=== PATIENT | male | born 1950 | race Caucasian/White ===

== ENCOUNTER 2019-06-23 03:52 | Emergency (ER) | payer BC, MEDICARE ==
[2019-06-23 04:32] VITALS: PULSE 82
--- NOTE | 2019-06-23 04:39 | EDM.PDOC ---
ED HPI GENERAL MEDICAL PROBLEM - General Chief Complaint: Genitourinary Problem Stated Complaint: PROBLEMS URINATING Time Seen by Provider: 06/23/19 04:15 Source of Information: Reports: Patient History Limitations: Reports: No Limitations - History of Present Illness INITIAL COMMENTS - FREE TEXT/NARRATIVE: 68-year-old male history of seizure disorder, prior DVT and Coumadin presents with concerns of urinary retention. He reports that symptoms first started approximately 2 days ago. He noticed increased difficulty with emptying. Some mild burning with this as well. No fevers or chills. No new medications. No history of prior issues with urinary retention. No known BPH. Otherwise feeling well. Lower Abdomen Pain Score (Numeric/FACES): 5 - Related Data Allergies Allergy/AdvReac Type Severity Reaction Status Date / Time No Known Allergies Allergy Verified 05/07/15 08:58 Home Meds: Home Meds Phenytoin [Dilantin] 30 mg PO DAILY 04/11/15 [History] Warfarin [Coumadin] 5 mg PO DAILY 04/11/15 [History] Phenytoin Sodium Extended [Dilantin] 500 mg PO DAILY 04/17/15 [History] Tamsulosin [Flomax] 0.4 mg PO DAILY #21 cap.er 06/23/19 [Rx] Past Medical History HEENT History: Reports: Impaired Vision Musculoskeletal History: Reports: Fracture Other Musculoskeletal History: right injury due to chain saw Neurological History: Reports: Seizure - Past Surgical History Other Musculoskeletal Surgeries/Procedures:: right hand Social & Family History - Family History Family Medical History: Noncontributory - Tobacco Use Smoking Status *Q: Never Smoker - Caffeine Use Caffeine Use: Reports: Coffee - Recreational Drug Use Recreational Drug Use: No ED ROS GENERAL - Review of Systems Review Of Systems: See Below Constitutional: Reports: No Symptoms HEENT: Reports: No Symptoms Respiratory: Reports: No Symptoms Cardiovascular: Reports: No Symptoms Endocrine: Reports: No Symptoms GI/Abdominal: Reports: No Symptoms : Reports: Urinary Retention Musculoskeletal: Reports: No Symptoms Skin: Reports: No Symptoms Neurological: Reports: No Symptoms Psychiatric: Reports: No Symptoms Hematologic/Lymphatic: Reports: No Symptoms Immunologic: Reports: No Symptoms ED EXAM, RENAL/ - Physical Exam Exam: See Below Exam Limited By: No Limitations General Appearance: Alert, No Apparent Distress Ears: Normal External Exam Nose: Normal Inspection Throat/Mouth: Normal Inspection Head: Atraumatic, Normocephalic Neck: Normal Inspection Respiratory/Chest: No Respiratory Distress, Lungs Clear Cardiovascular: Regular Rate, Rhythm GI/Abdominal: Soft, Non-Tender, No Distention Back Exam: Normal Inspection Extremities: Normal Inspection Neurological: Alert, Oriented Psychiatric: Normal Affect, Normal Mood Skin Exam: Warm, Dry Course - Vital Signs Last Recorded V/S: Last Vital Signs Temp 37.0 C 06/23/19 04:27 Pulse 82 06/23/19 04:27 Resp 16 06/23/19 04:27 BP 206/100 H 06/23/19 04:27 Pulse Ox 98 06/23/19 04:27 - Orders/Labs/Meds Labs: Laboratory Tests 06/23/19 Range/Units 04:27 Urine Color Yellow (YELLOW) Urine Appearance Clear (CLEAR) Urine pH 5.5 (5.0-8.0) Ur Specific [place] 1.015 (1.008-1.030) Urine Protein Negative (NEGATIVE) mg/dL Urine Glucose (UA) Negative (NEGATIVE) mg/dL Urine Ketones Negative (NEGATIVE) mg/dL Urine Occult Blood Moderate H (NEGATIVE) Urine Nitrite Negative (NEGATIVE) Urine Bilirubin Negative (NEGATIVE) Urine Urobilinogen 0.2 (0.2-1.0) EU/dL Ur Leukocyte Esterase Negative (NEGATIVE) Urine RBC 10-20 H (0-5) Urine WBC 0-5 (0-5) Ur Epithelial Cells Rare Amorphous Sediment Few Urine Bacteria Few Urine Mucus Not seen - Re-Assessments/Exams Free Text/Narrative Re-Assessment/Exam: 68-year-old presents with concerns of urinary retention. Symptoms relatively acutely started just over 2 days ago. No known history of BPH. Certainly at risk for this given his age. No other clear offenders. Rodriguez inserted and initially drained over 1 L fluid of clear urine before being clamped by RN. We'll check UA. Plan to start him on tamsulosin. The to follow up with PCP in one week for voiding trial and further workup. 06/23/19 04:37 Departure - Departure Time of Disposition: 17:11 Disposition: Home, Self-Care 01 Clinical Impression: Urinary retention - Discharge Information Prescriptions: Tamsulosin [Flomax] 0.4 mg PO DAILY #21 cap.er Instructions: Acute Urinary Retention, Male Referrals: PCP,None [Primary Care Provider] - Forms: ED Department Discharge Additional Instructions: Please call your primary doctor this week to arrange follow-up for voiding trial and to have a recheck of your BP Take the prescribed medication Return to the ER or call your primary doctor if you develop fevers/chills, drainage out the catheter stops, or you develop pain
[2019-06-23 05:16] VITALS: BP 151/84
== END 2019-06-23 05:30 | disposition home or self-care (01) ==
LOC: JP.ED 03:52
DX: R33.9 Retention of urine, unspecified (principal); Z79.01 Long term (current) use of anticoagulants
CPT/HCPCS: 51702; 81001; 99282-25

== ENCOUNTER 2019-06-28 02:52 | Emergency (ER) | payer MEDICARE ==
[2019-06-28] MEDS ORDERED: Lidocaine 2% Jelly 10 ML Urojet ONE (03:09)
[2019-06-28 03:16] VITALS: PULSE 85
[2019-06-28] MEDS ORDERED: Lidocaine 2% Jelly 10 ML Urojet MUCMEM ONE (03:33)
[2019-06-28 03:40] VITALS: BP 153/89
--- NOTE | 2019-06-28 03:40 | EDM.PDOC ---
ED HPI GENERAL MEDICAL PROBLEM - General Chief Complaint: Genitourinary Problem Stated Complaint: TROUBLE URINATING Time Seen by Provider: 06/28/19 03:34 Source of Information: Reports: Patient, Old Records, RN History Limitations: Reports: No Limitations - History of Present Illness INITIAL COMMENTS - FREE TEXT/NARRATIVE: 68 yo male here with inability to void. Had a ramos removed for urinary retention yesterday. Is now on Flomax. Has been unable to void since having the catheter out. Onset Date: 06/27/19 Duration: Hour(s):, Getting Worse Location: Reports: Pelvis (Bladder) Quality: Reports: Pressure Severity: Severe Improves with: Reports: Other (catheter placement) Worsens with: Reports: Other (time) Context: Reports: Other (See HPI) Associated Symptoms: Reports: No Other Symptoms Treatments LENS MAKER: Reports: Other (see below) (none) Bladder Pain Score (Numeric/FACES): 8 - Related Data Allergies Allergy/AdvReac Type Severity Reaction Status Date / Time No Known Allergies Allergy Verified 06/28/19 03:08 Home Meds: Home Meds Phenytoin [Dilantin] 30 mg PO DAILY 04/11/15 [History] Warfarin [Coumadin] 5 mg PO DAILY 04/11/15 [History] Phenytoin Sodium Extended [Dilantin] 500 mg PO DAILY 04/17/15 [History] Tamsulosin [Flomax] 0.4 mg PO DAILY #21 cap.er 06/23/19 [Rx] Past Medical History HEENT History: Reports: Impaired Vision Genitourinary History: Reports: Retention, Urinary Other Genitourinary History: 1st time urinary retention on 06/23/2019 Musculoskeletal History: Reports: Fracture Other Musculoskeletal History: right injury due to chain saw Neurological History: Reports: Seizure - Infectious Disease History Infectious Disease History: Reports: Chicken Pox - Past Surgical History Other Musculoskeletal Surgeries/Procedures:: right hand Social & Family History - Family History Family Medical History: Noncontributory - Tobacco Use Second Hand Smoke Exposure: No - Caffeine Use Caffeine Use: Reports: Coffee - Recreational Drug Use Recreational Drug Use: No ED ROS GENERAL - Review of Systems Review Of Systems: Comprehensive ROS is negative, except as noted in HPI. Constitutional: Reports: No Symptoms : Reports: Urinary Retention ED EXAM, RENAL/ - Physical Exam Exam: See Below Exam Limited By: No Limitations General Appearance: Alert, WD/WN, Mild Distress Eye Exam: Bilateral Eye: Normal Inspection Ears: Hearing Grossly Normal Nose: Normal Inspection, No Blood (Male) Exam: Suprapubic Fullness Extremities: Normal Inspection Neurological: Alert, Oriented, CN II-XII Intact, Normal Cognition, No Motor/ Sensory Deficits Psychiatric: Normal Affect, Normal Mood Skin Exam: Warm, Dry, Intact, Normal Color, No Rash Course - Vital Signs Text/Narrative:: bladder scan > 900 ml ramos placed after use of lidocaine urojet by nursing. Last Recorded V/S: Last Vital Signs Temp 36.2 C 06/28/19 03:14 Pulse 85 06/28/19 03:14 Resp 18 06/28/19 03:14 BP 195/117 H 06/28/19 03:14 Pulse Ox 96 06/28/19 03:14 - Orders/Labs/Meds Orders: Active Orders 24 hr Category Date Time Status Bladder Scan [RC] ASDIRECTED Care 06/28/19 03:31 Ordered Ramos Catheter Insertion [Insert Urinary Catheter] [OM. Care 06/28/19 03:45 Ordered PC] Q24H Urinary Catheter Assessment [RC] ASDIRECTED Care 06/28/19 03:34 Ordered UA W/MICROSCOPIC [URIN] Stat Lab 06/28/19 03:32 Ordered Lidocaine 2% [Xylocaine 2% Jelly] Med 06/28/19 03:33 Once 10 ml MUCMEM ONETIME ONE Medication Orders Lidocaine HCl (Xylocaine 2% Jelly) 10 ml MUCMEM ONETIME ONE Stop: 06/28/19 03:34 Meds: Medications Generic Name Dose Route Start Last Admin Trade Name Freq PRN Reason Stop Dose Admin Lidocaine HCl 10 ml 06/28/19 03:33 Xylocaine 2% Jelly MUCMEM 06/28/19 03:34 ONETIME ONE Discontinued Medications Generic Name Dose Route Start Last Admin Trade Name Freq PRN Reason Stop Dose Admin Lidocaine HCl Confirm 06/28/19 03:09 Xylocaine 2% Jelly Administered 06/28/19 03:10 Dose 10 ml .ROUTE .STK-MED ONE Departure - Departure Time of Disposition: 03:46 Disposition: Home, Self-Care 01 Condition: Fair Clinical Impression: Urinary retention - Discharge Information *PRESCRIPTION DRUG MONITORING PROGRAM REVIEWED*: No *COPY OF PRESCRIPTION DRUG MONITORING REPORT IN PATIENT YARELY: No Instructions: Indwelling Urinary Catheter Care, Adult Referrals: Aniket Gan MD [Primary Care Provider] - Additional Instructions: Discuss your situation with Dr. Gan on Sunday. Drink ample fluids. Continue the Flomax for now. You may need a referral to urology. Sepsis Event Note - Evaluation Sepsis Screening Result: No Definite Risk - Focused Exam Vital Signs: Vital Signs Temp Pulse Resp BP Pulse Ox 06/28/19 03:14 36.2 C 85 18 195/117 H 96 Date Exam was Performed: 06/28/19 Time Exam was Performed: 03:34 - My Orders Last 24 Hours: My Active Orders 06/28/19 03:31 Bladder Scan [RC] ASDIRECTED 06/28/19 03:32 UA W/MICROSCOPIC [URIN] Stat 06/28/19 03:33 Lidocaine 2% [Xylocaine 2% Jelly] 10 ml MUCMEM ONETIME ONE 06/28/19 03:34 Urinary Catheter Assessment [RC] ASDIRECTED 06/28/19 03:45 Ramos Catheter Insertion [Insert Urinary Catheter] [OM.PC] Q24H - Assessment/Plan Last 24 Hours: My Active Orders 06/28/19 03:31 Bladder Scan [RC] ASDIRECTED 06/28/19 03:32 UA W/MICROSCOPIC [URIN] Stat 06/28/19 03:33 Lidocaine 2% [Xylocaine 2% Jelly] 10 ml MUCMEM ONETIME ONE 06/28/19 03:34 Urinary Catheter Assessment [RC] ASDIRECTED 06/28/19 03:45 Ramos Catheter Insertion [Insert Urinary Catheter] [OM.PC] Q24H
== END 2019-06-28 04:10 | disposition home or self-care (01) ==
LOC: JP.ED 02:52
DX: R33.9 Retention of urine, unspecified (principal)
CPT/HCPCS: 51702; 51798; 81001; 99283; 99284-25

== ENCOUNTER 2019-07-11 22:00 | Emergency (ER) | payer MEDICARE ==
[2019-07-11 22:15] VITALS: BP 169/97; PULSE 75
--- NOTE | 2019-07-11 22:30 | EDM.PDOC ---
ED HPI GENERAL MEDICAL PROBLEM - General Chief Complaint: Genitourinary Problem Stated Complaint: CATHETER Time Seen by Provider: 07/11/19 22:10 Source of Information: Reports: Patient History Limitations: Reports: No Limitations - History of Present Illness INITIAL COMMENTS - FREE TEXT/NARRATIVE: 68-year-old male with an indwelling Rodriguez catheter for the past several weeks, I believe due to outlet obstruction, woke from a nap this afternoon and had no urine in his bag and feels distended. This morning he had a doctor's appointment and everything was working fine. No fever or chills. Onset: Unknown/Unsure Associated Symptoms: Reports: Other (Lower abdominal pain from urinary obstruction) Treatments RESIDENT BUYER: Reports: Other (see below) Other Treatments RESIDENT BUYER: none Bladder Pain Score (Numeric/FACES): 4 - Related Data Allergies Allergy/AdvReac Type Severity Reaction Status Date / Time No Known Allergies Allergy Verified 07/11/19 22:52 Home Meds: Home Meds Phenytoin [Dilantin] 30 mg PO DAILY 04/11/15 [History] Warfarin [Coumadin] 5 mg PO DAILY 04/11/15 [History] Phenytoin Sodium Extended [Dilantin] 500 mg PO DAILY 04/17/15 [History] Tamsulosin [Flomax] 0.4 mg PO DAILY #21 cap.er 06/23/19 [Rx] Past Medical History HEENT History: Reports: Impaired Vision Genitourinary History: Reports: Retention, Urinary Other Genitourinary History: 1st time urinary retention on 06/23/2019 Musculoskeletal History: Reports: Fracture Other Musculoskeletal History: right injury due to chain saw Neurological History: Reports: Seizure - Infectious Disease History Infectious Disease History: Reports: Chicken Pox - Past Surgical History Other Musculoskeletal Surgeries/Procedures:: right hand Social & Family History - Family History Family Medical History: Noncontributory - Caffeine Use Caffeine Use: Reports: Coffee ED ROS GENERAL - Review of Systems Review Of Systems: See Below Constitutional: Denies: Fever, Chills GI/Abdominal: Reports: Abdominal Pain. Denies: Nausea, Vomiting : Reports: Urgency, Urinary Retention Neurological: Reports: No Symptoms ED EXAM, RENAL/ - Physical Exam Exam: See Below Exam Limited By: No Limitations General Appearance: Alert, No Apparent Distress Respiratory/Chest: No Respiratory Distress GI/Abdominal: Soft, Other (Uncomfortable to palpation over the lower abdomen with bladder distention palpable) Neurological: Alert, Oriented Psychiatric: Normal Affect, Normal Mood Skin Exam: Warm, Dry Course - Vital Signs Last Recorded V/S: Last Vital Signs Temp 97.0 F 07/11/19 22:57 Pulse 75 07/11/19 22:57 Resp 16 07/11/19 22:57 BP 169/97 H 07/11/19 22:57 Pulse Ox 95 07/11/19 22:57 - Re-Assessments/Exams Free Text/Narrative Re-Assessment/Exam: 07/11/19 22:29 The existing Rodriguez was attempted to be cleared with irrigation, and was unsuccessful. It was then replaced without complication and over 500 cc of urine was released and patient felt better. Follow-up as needed. Departure - Departure Time of Disposition: 22:40 Disposition: Home, Self-Care 01 Clinical Impression: Malfunction of Rodriguez catheter Qualifiers: Encounter type: initial encounter Qualified Code(s): T83.011A - Breakdown ( mechanical) of indwelling urethral catheter, initial encounter - Discharge Information Instructions: Indwelling Urinary Catheter Care, Adult Referrals: Aniket Gan MD [Primary Care Provider] - Forms: ED Department Discharge Care Plan Goals: Continue with regular use and care of the Rodriguez catheter, follow-up as scheduled or return sooner if you develop difficulties or concerns. Sepsis Event Note - Focused Exam Vital Signs: Vital Signs Temp Pulse Resp BP Pulse Ox 07/11/19 22:57 97.0 F 75 16 169/97 H 95 07/11/19 22:14 97.0 F 75 16 169/97 H 95 Date Exam was Performed: 07/12/19 Time Exam was Performed: 01:15
== END 2019-07-11 23:03 | disposition home or self-care (01) ==
LOC: JP.ED 22:00
DX: T83.011A Breakdown (mechanical) of indwelling urethral catheter, initial encounter (principal); Z79.01 Long term (current) use of anticoagulants; Z79.899 Other long term (current) drug therapy
CPT/HCPCS: 51702; 99283

== ENCOUNTER 2019-08-08 17:26 | Emergency (ER) | payer MEDICARE ==
[2019-08-08 17:43] VITALS: BP 198/109; PULSE 90
--- NOTE | 2019-08-08 18:42 | EDM.PDOC ---
ED HPI GENERAL MEDICAL PROBLEM - General Chief Complaint: Genitourinary Problem Stated Complaint: CATH Time Seen by Provider: 08/08/19 18:38 Source of Information: Reports: Patient, RN Notes Reviewed History Limitations: Reports: No Limitations - History of Present Illness INITIAL COMMENTS - FREE TEXT/NARRATIVE: 6-year-old gentleman presents emergency department today complaint of dysfunctioning catheter, he has had a catheter in now for about 2 months he noticed over the last 24 hours or so it is progressively gotten slower to the point and was no longer functioning. He complains of abdominal pain no fevers - Related Data Allergies Allergy/AdvReac Type Severity Reaction Status Date / Time No Known Allergies Allergy Verified 08/08/19 18:12 Home Meds: Home Meds Phenytoin [Dilantin] 30 mg PO DAILY 04/11/15 [History] Warfarin [Coumadin] 5 mg PO DAILY 04/11/15 [History] Phenytoin Sodium Extended [Dilantin] 500 mg PO DAILY 04/17/15 [History] Tamsulosin [Flomax] 0.4 mg PO DAILY #21 cap.er 06/23/19 [Rx] Past Medical History HEENT History: Reports: Impaired Vision Genitourinary History: Reports: Retention, Urinary Other Genitourinary History: 1st time urinary retention on 06/23/2019 Musculoskeletal History: Reports: Fracture Other Musculoskeletal History: right injury due to chain saw Neurological History: Reports: Seizure - Infectious Disease History Infectious Disease History: Reports: Chicken Pox - Past Surgical History Other Musculoskeletal Surgeries/Procedures:: right hand Social & Family History - Family History Family Medical History: Noncontributory - Tobacco Use Smoking Status *Q: Never Smoker - Caffeine Use Caffeine Use: Reports: Coffee ED ROS GENERAL - Review of Systems Review Of Systems: See Below Constitutional: Reports: No Symptoms GI/Abdominal: Reports: Abdominal Pain : Reports: Urinary Retention ED EXAM, GENERAL - Physical Exam Exam: See Below Free Text/Narrative:: Catheter was changed by nursing staff, revealed 700 cc urine after changing the catheter abdominal pain and pressure was resolved feeling back to his normal state Exam Limited By: No Limitations General Appearance: Alert, WD/WN, No Apparent Distress Respiratory/Chest: No Respiratory Distress GI/Abdominal: Soft, Non-Tender Course - Vital Signs Last Recorded V/S: Last Vital Signs Temp 98.0 F 08/08/19 18:23 Pulse 90 08/08/19 18:23 Resp 16 08/08/19 18:23 BP 198/109 H 08/08/19 18:23 Pulse Ox 97 08/08/19 18:23 - Orders/Labs/Meds Orders: Active Orders 24 hr Category Date Time Status Bladder Scan [RC] ASDIRECTED Care 08/08/19 18:16 Active Departure - Departure Time of Disposition: 18:41 Disposition: Home, Self-Care 01 Condition: Fair Clinical Impression: Malfunction of Rodriguez catheter Qualifiers: Encounter type: initial encounter Qualified Code(s): T83.011A - Breakdown ( mechanical) of indwelling urethral catheter, initial encounter - Discharge Information Instructions: Indwelling Urinary Catheter Care, Adult Referrals: Aniket Gan MD [Primary Care Provider] - Additional Instructions: Keep your follow-up appointment with urology next week, call return to the emergency department worsening of symptoms Sepsis Event Note - Evaluation Sepsis Screening Result: No Definite Risk - Focused Exam Vital Signs: Vital Signs Temp Pulse Resp BP Pulse Ox 08/08/19 18:23 98.0 F 90 16 198/109 H 97 08/08/19 17:42 98.0 F 90 16 198/109 H 97 Date Exam was Performed: 08/08/19 Time Exam was Performed: 18:39 - My Orders Last 24 Hours: My Active Orders 08/08/19 18:16 Bladder Scan [RC] ASDIRECTED - Assessment/Plan Last 24 Hours: My Active Orders 08/08/19 18:16 Bladder Scan [RC] ASDIRECTED Plan: Assessment Acuity = acute Site and laterality = urinary catheter dysfunction Rodriguez Etiology = unknown Manifestations = abdominal pain now resolved Location of injury = Home Lab values = none Plan He has a follow-up appointment with urology next week This note was dictated using [id number] films recognition software please call with any questions on syntax or grammar.
== END 2019-08-08 18:55 | disposition home or self-care (01) ==
LOC: JP.ED 17:26
DX: T83.011A Breakdown (mechanical) of indwelling urethral catheter, initial encounter (principal); Z79.01 Long term (current) use of anticoagulants
CPT/HCPCS: 51798; 99283; 99283-25

== ENCOUNTER 2019-10-12 19:19 | Emergency (ER) | payer MEDICARE ==
[2019-10-12 21:16] VITALS: BP 156/89; PULSE 74
[2019-10-12] MEDS ORDERED: Cephalexin 250 MG Cap PO ONE (21:24)
--- NOTE | 2019-10-12 21:26 | EDM.PDOC ---
ED HPI GENERAL MEDICAL PROBLEM - General Chief Complaint: Genitourinary Problem Stated Complaint: CATH ISSUES Time Seen by Provider: 10/12/19 21:25 Source of Information: Reports: Patient, Old Records, RN History Limitations: Reports: No Limitations - History of Present Illness INITIAL COMMENTS - FREE TEXT/NARRATIVE: Removed catheter at home due to plugging. No recent fever, chills, or vomiting. 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 Onset: Today Onset Date: 10/12/19 Duration: Hour(s): Location: Reports: Pelvis (urethral) Quality: Reports: Other (no pain) Severity: Moderate Improves with: Reports: Other (new catheter placement) Worsens with: Reports: Other (duration of catheter plugging) Context: Reports: Other (see HPI) Associated Symptoms: Reports: No Other Symptoms Treatments LOGGER: Reports: Other (see below) (removed catheter) denies Pain Score (Numeric/FACES): 0 - Related Data Allergies Allergy/AdvReac Type Severity Reaction Status Date / Time No Known Allergies Allergy Verified 10/12/19 20:46 Home Meds: Home Meds Phenytoin [Dilantin] 30 mg PO DAILY 04/11/15 [History] Warfarin [Coumadin] 5 mg PO DAILY 04/11/15 [History] Phenytoin Sodium Extended [Dilantin] 500 mg PO DAILY 04/17/15 [History] Tamsulosin [Flomax] 0.4 mg PO DAILY #21 cap.er 06/23/19 [Rx] Past Medical History HEENT History: Reports: Impaired Vision Genitourinary History: Reports: Retention, Urinary Other Genitourinary History: 1st time urinary retention on 06/23/2019 Musculoskeletal History: Reports: Fracture Other Musculoskeletal History: right injury due to chain saw Neurological History: Reports: Seizure - Infectious Disease History Infectious Disease History: Reports: Chicken Pox - Past Surgical History Other Musculoskeletal Surgeries/Procedures:: right hand Social & Family History - Family History Family Medical History: Noncontributory - Tobacco Use Smoking Status *Q: Never Smoker Second Hand Smoke Exposure: No - Caffeine Use Caffeine Use: Reports: Coffee - Alcohol Use Days Per Week of Alcohol Use: 0 - Recreational Drug Use Recreational Drug Use: No ED ROS GENERAL - Review of Systems Review Of Systems: See Below Constitutional: Reports: No Symptoms HEENT: Reports: No Symptoms Respiratory: Reports: No Symptoms GI/Abdominal: Reports: No Symptoms : Reports: Urinary Retention (due to catheter plugging) Skin: Reports: No Symptoms ED EXAM, RENAL/ - Physical Exam Exam: See Below Exam Limited By: No Limitations General Appearance: Alert, WD/WN, No Apparent Distress GI/Abdominal: Soft, Non-Tender (Male) Exam: Other (urine cloudy in new catheter) Neurological: Alert, Oriented, CN II-XII Intact, Normal Cognition, No Motor/ Sensory Deficits Skin Exam: Warm, Dry, Intact, Normal Color, No Rash Course - Vital Signs Last Recorded V/S: Last Vital Signs Temp 36.8 C 10/12/19 21:15 Pulse 74 10/12/19 21:15 Resp 16 10/12/19 21:15 BP 156/89 H 10/12/19 21:15 Pulse Ox 98 10/12/19 21:15 - Orders/Labs/Meds Orders: Active Orders 24 hr Category Date Time Status Rodriguez Catheter Insertion [Insert Urinary Catheter] [OM. Care 10/12/19 20:30 Ordered PC] Q24H Urinary Catheter Assessment [RC] ASDIRECTED Care 10/12/19 20:31 Active CULTURE URINE [RM] Stat Lab 10/12/19 21:23 Ordered Labs: Laboratory Tests 10/12/19 Range/Units 19:28 Urine Color Yellow (YELLOW) Urine Appearance Cloudy A (CLEAR) Urine pH 6.5 (5.0-8.0) Ur Specific [place] >= 1.030 (1.008-1.030) Urine Protein 100 H (NEGATIVE) mg/dL Urine Glucose (UA) Negative (NEGATIVE) mg/dL Urine Ketones Negative (NEGATIVE) mg/dL Urine Occult Blood Moderate H (NEGATIVE) Urine Nitrite Positive H (NEGATIVE) Urine Bilirubin Negative (NEGATIVE) Urine Urobilinogen 0.2 (0.2-1.0) EU/dL Ur Leukocyte Esterase Large H (NEGATIVE) Urine RBC Not seen (0-5) Urine WBC Packed H (0-5) Ur Epithelial Cells Not seen Amorphous Sediment Not seen Urine Bacteria Many Urine Mucus Not seen Meds: Medications Discontinued Medications Generic Name Dose Route Start Last Admin Trade Name Freq PRN Reason Stop Dose Admin Cephalexin 500 mg 10/12/19 21:24 Keflex PO 10/12/19 21:25 ONETIME ONE Departure - Departure Time of Disposition: 21:40 Disposition: Home, Self-Care 01 Condition: Fair Clinical Impression: UTI (urinary tract infection) Qualifiers: Urinary tract infection type: acute cystitis Hematuria presence: without hematuria Qualified Code(s): N30.00 - Acute cystitis without hematuria Rodriguez catheter problem Qualifiers: Encounter type: initial encounter Qualified Code(s): T83.9XXA - Unspecified complication of genitourinary prosthetic device, implant and graft, initial encounter - Discharge Information *PRESCRIPTION DRUG MONITORING PROGRAM REVIEWED*: Not Applicable *COPY OF PRESCRIPTION DRUG MONITORING REPORT IN PATIENT YARELY: Not Applicable Instructions: Urinary Tract Infection, Adult, [id number] Referrals: PCP,None [Primary Care Provider] - Forms: ED Department Discharge Additional Instructions: Take cephalexin as directed. Drink ample fluids. See your provider for recheck in 2 days to review your culture results. Return or see your doctor sooner if a fever develops. Sepsis Event Note - Evaluation Sepsis Screening Result: No Definite Risk - Focused Exam Vital Signs: Vital Signs Temp Pulse Resp BP Pulse Ox 10/12/19 21:15 36.8 C 74 16 156/89 H 98 Date Exam was Performed: 10/12/19 Time Exam was Performed: 21:27 - My Orders Last 24 Hours: My Active Orders 10/12/19 20:30 Rodriguez Catheter Insertion [Insert Urinary Catheter] [OM.PC] Q24H 10/12/19 20:31 Urinary Catheter Assessment [RC] ASDIRECTED 10/12/19 21:23 CULTURE URINE [RM] Stat - Assessment/Plan Last 24 Hours: My Active Orders 10/12/19 20:30 Rodriguez Catheter Insertion [Insert Urinary Catheter] [OM.PC] Q24H 10/12/19 20:31 Urinary Catheter Assessment [RC] ASDIRECTED 10/12/19 21:23 CULTURE URINE [RM] Stat
== END 2019-10-12 21:48 | disposition home or self-care (01) ==
LOC: JP.ED 19:19
DX: T83.9XXA Unspecified complication of genitourinary prosthetic device, implant and graft, initial encounter (principal); N30.00 Acute cystitis without hematuria; Z79.899 Other long term (current) drug therapy
CPT/HCPCS: 51702; 81001; 87086; 87088; 87186; 99283; A9270

== ENCOUNTER 2019-12-23 01:00 | Emergency (ER) | payer MEDICARE ==
[2019-12-23 01:19] VITALS: BP 186/94; PULSE 78
--- NOTE | 2019-12-23 02:35 | EDM.PDOC ---
ED HPI GENERAL MEDICAL PROBLEM - General Chief Complaint: Genitourinary Problem Stated Complaint: UNABLE TO URINATE Time Seen by Provider: 12/23/19 02:26 Source of Information: Reports: Patient, RN Notes Reviewed History Limitations: Reports: No Limitations - History of Present Illness INITIAL COMMENTS - FREE TEXT/NARRATIVE: 69-year-old gentleman presents emergency department today concerned about urinary tract infection, he normally uses a catheter with a leg bag over the last 24 hours he noticed the catheter was plugged. He remove the catheter himself was able to go for about 24 hours without needing a catheter but then developed urinary retention. Bladder Pain Score (Numeric/FACES): 10 - Related Data Allergies Allergy/AdvReac Type Severity Reaction Status Date / Time No Known Allergies Allergy Verified 12/23/19 01:19 Home Meds: Home Meds Phenytoin [Dilantin] 30 mg PO DAILY 04/11/15 [History] Warfarin [Coumadin] 5 mg PO DAILY 04/11/15 [History] Phenytoin Sodium Extended [Dilantin] 500 mg PO DAILY 04/17/15 [History] Tamsulosin [Flomax] 0.4 mg PO DAILY #21 cap.er 06/23/19 [Rx] Past Medical History HEENT History: Reports: Impaired Vision Genitourinary History: Reports: Retention, Urinary Other Genitourinary History: 1st time urinary retention on 06/23/2019 Musculoskeletal History: Reports: Fracture Other Musculoskeletal History: right injury due to chain saw Neurological History: Reports: Seizure - Infectious Disease History Infectious Disease History: Reports: Chicken Pox - Past Surgical History Other Musculoskeletal Surgeries/Procedures:: right hand Social & Family History - Family History Family Medical History: Noncontributory - Tobacco Use Smoking Status *Q: Never Smoker - Caffeine Use Caffeine Use: Reports: None - Recreational Drug Use Recreational Drug Use: No ED ROS GENERAL - Review of Systems Review Of Systems: See Below Constitutional: Reports: No Symptoms : Reports: Urinary Retention, Other (Catheter dysfunction) ED EXAM, RENAL/ - Physical Exam Exam: See Below Exam Limited By: No Limitations General Appearance: Alert, WD/WN, No Apparent Distress Respiratory/Chest: No Respiratory Distress GI/Abdominal: Soft, Non-Tender Back Exam: No: CVA Tenderness (R), CVA Tenderness (L) Course - Vital Signs Last Recorded V/S: Last Vital Signs Temp 97.5 F 12/23/19 01:18 Pulse 78 12/23/19 01:18 Resp 14 12/23/19 01:18 BP 186/94 H 12/23/19 01:18 Pulse Ox 96 12/23/19 01:18 - Orders/Labs/Meds Orders: Active Orders 24 hr Category Date Time Status Insert Rodriguez Catheter [Insert Urinary Catheter] [OM.PC] Care 12/23/19 01:45 Ordered Q24H Urinary Catheter Assessment [RC] ASDIRECTED Care 12/23/19 01:43 Active CULTURE URINE [RM] Urgent Lab 12/23/19 02:30 Ordered Labs: Laboratory Tests 12/23/19 Range/Units 01:50 Urine Color Yellow (YELLOW) Urine Appearance Cloudy A (CLEAR) Urine pH 6.5 (5.0-8.0) Ur Specific [place] 1.025 (1.008-1.030) Urine Protein Trace H (NEGATIVE) mg/dL Urine Glucose (UA) Normal (NEGATIVE) mg/dL Urine Ketones Negative (NEGATIVE) mg/dL Urine Occult Blood Moderate (NEGATIVE) Urine Nitrite Negative (NEGATIVE) Urine Bilirubin Negative (NEGATIVE) Urine Urobilinogen 0.2 (0.2-1.0) EU/dL Ur Leukocyte Esterase Large (NEGATIVE) Urine RBC 5-10 H (0-5) Urine WBC >100 H (0-5) Ur Epithelial Cells Rare Amorphous Sediment Not seen Urine Bacteria Moderate Urine Mucus Not seen Departure - Departure Time of Disposition: 02:34 Disposition: Home, Self-Care 01 Condition: Fair Clinical Impression: UTI, Urinary tract infectious disease - Discharge Information Instructions: Indwelling Urinary Catheter Care, Adult, Urinary Tract Infection , Adult, [id number] Referrals: PCP,None [Primary Care Provider] - Additional Instructions: Take full course of antibiotics, please followup with your primary care provider in 3-5 days if not better, please call return to the emergency department with worsening of symptoms. Sepsis Event Note - Evaluation Sepsis Screening Result: No Definite Risk - Focused Exam Vital Signs: Vital Signs Temp Pulse Resp BP Pulse Ox 12/23/19 01:18 97.5 F 78 14 186/94 H 96 Date Exam was Performed: 12/23/19 Time Exam was Performed: 02:31 - My Orders Last 24 Hours: My Active Orders 12/23/19 01:43 Urinary Catheter Assessment [RC] ASDIRECTED 12/23/19 01:45 Insert Rodriguez Catheter [Insert Urinary Catheter] [OM.PC] Q24H 12/23/19 02:30 CULTURE URINE [RM] Urgent - Assessment/Plan Last 24 Hours: My Active Orders 12/23/19 01:43 Urinary Catheter Assessment [RC] ASDIRECTED 12/23/19 01:45 Insert Rodriguez Catheter [Insert Urinary Catheter] [OM.PC] Q24H 12/23/19 02:30 CULTURE URINE [RM] Urgent Plan: Assessment Acuity = acute Site and laterality = complicated urinary tract infection Etiology = probable bacterial cause Manifestations = urinary retention Location of injury = Home Lab values = urinalysis 5-10 RBCs consistent hematuria greater than 100 WBCs consistent with pyuria cultures pending Plan Elected to treat with Bactrim DS 1 tab p.o. twice daily x14 days follow-up primary care in 3 to 5 days if no improvement culture results should be available at that time This note was dictated using [employer] voice recognition software please call with any questions on syntax or grammar.
== END 2019-12-23 03:17 | disposition home or self-care (01) ==
LOC: JP.ED 01:00
DX: N39.0 Urinary tract infection, site not specified (principal); R56.9 Unspecified convulsions; Z79.01 Long term (current) use of anticoagulants; Z79.899 Other long term (current) drug therapy
CPT/HCPCS: 51702; 51798; 81001; 87086; 99283

== ENCOUNTER 2020-03-13 16:10 | Emergency (ER) | payer MEDICARE ==
[2020-03-13] MEDS ORDERED: Lidocaine 2% Jelly 10 ML Urojet MUCMEM ONE (16:14)
[2020-03-13 16:33] VITALS: BP 162/48; PULSE 76
--- NOTE | 2020-03-13 16:48 | EDM.PDOC ---
ED HPI GENERAL MEDICAL PROBLEM - General Chief Complaint: Genitourinary Problem Stated Complaint: NEEDS CATH REPLACED Time Seen by Provider: 03/13/20 16:40 Source of Information: Reports: Patient History Limitations: Reports: No Limitations - History of Present Illness INITIAL COMMENTS - FREE TEXT/NARRATIVE: Mundo is a 69 year old male, presents to the ED today with request for urinary catheter placement. 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 Patient is on Flomax, he pulled out his Rodriguez earlier today because "it wasn't draining". Patient denies any recent UTI hx. Patient denies any fever, flank or pelvic pain. Patient was able to spontaneously void earlier today but "I know I won't be able to again". Patient has been referred to Urology at [facility] but will not drive 90 miles to see a doctor. Patient denies any other complaints today. Onset: Gradual - Related Data Allergies Allergy/AdvReac Type Severity Reaction Status Date / Time No Known Allergies Allergy Verified 12/23/19 01:19 Home Meds: Home Meds Phenytoin [Dilantin] 30 mg PO DAILY 04/11/15 [History] Warfarin [Coumadin] 5 mg PO DAILY 04/11/15 [History] Phenytoin Sodium Extended [Dilantin] 500 mg PO DAILY 04/17/15 [History] Tamsulosin [Flomax] 0.4 mg PO DAILY #21 cap.er 06/23/19 [Rx] Past Medical History HEENT History: Reports: Impaired Vision Genitourinary History: Reports: Retention, Urinary Other Genitourinary History: 1st time urinary retention on 06/23/2019 Musculoskeletal History: Reports: Fracture Other Musculoskeletal History: right injury due to chain saw Neurological History: Reports: Seizure - Infectious Disease History Infectious Disease History: Reports: Chicken Pox - Past Surgical History Other Musculoskeletal Surgeries/Procedures:: right hand Social & Family History - Family History Family Medical History: Noncontributory - Tobacco Use Smoking Status *Q: Never Smoker - Caffeine Use Caffeine Use: Reports: None ED ROS GENERAL - Review of Systems Review Of Systems: Comprehensive ROS is negative, except as noted in HPI. ED EXAM, RENAL/ - Physical Exam Exam: See Below Exam Limited By: No Limitations General Appearance: Alert, WD/WN, No Apparent Distress Nose: Normal Inspection Throat/Mouth: Normal Inspection Head: Atraumatic Neck: Normal Inspection, Supple Respiratory/Chest: No Respiratory Distress GI/Abdominal: Soft, Non-Tender (Male) Exam: Deferred Extremities: Normal Inspection Neurological: Alert, Oriented Psychiatric: Normal Affect, Normal Mood Skin Exam: Warm, Dry, Intact Lymphatic: No Adenopathy Course - Vital Signs Last Recorded V/S: Last Vital Signs Temp 36.3 C 03/13/20 16:32 Pulse 76 03/13/20 16:32 Resp 14 03/13/20 16:32 BP 162/48 H 03/13/20 16:32 Pulse Ox 97 03/13/20 16:32 Mundo is a 69 year old male, hx of chronic urinary retention secondary to BPH, presents for Rodriguez catheter placement. Please refer to HPI and focused exam. Patient denies any other complaints today. Rodriguez catheter placed per RN, UA sent to lab, significant for infection, given Warfarin use with start patient on Cipro for the next 7 days pending culture. Reasons to return to the ED discussed, patient agreeable and discharged in stable condition. - Orders/Labs/Meds Orders: Active Orders 24 hr Category Date Time Status Rodriguez Catheter Insertion [Insert Urinary Catheter] [OM. Care 03/13/20 16:15 Ordered PC] Q24H Urinary Catheter Assessment [RC] ASDIRECTED Care 03/13/20 16:14 Active CULTURE URINE [RM] Stat Lab 03/13/20 17:03 Received Labs: Laboratory Tests 03/13/20 Range/Units 16:59 Urine Color Yellow (YELLOW) Urine Appearance Slightly cloudy A (CLEAR) Urine pH 6.0 (5.0-8.0) Ur Specific [place] 1.010 (1.008-1.030) Urine Protein 30 H (NEGATIVE) mg/dL Urine Glucose (UA) Negative (NEGATIVE) mg/dL Urine Ketones Negative (NEGATIVE) mg/dL Urine Occult Blood Large H (NEGATIVE) Urine Nitrite Positive H (NEGATIVE) Urine Bilirubin Negative (NEGATIVE) Urine Urobilinogen 0.2 (0.2-1.0) EU/dL Ur Leukocyte Esterase Large H (NEGATIVE) Urine RBC 0-5 (0-5) Urine WBC 40-50 H (0-5) Ur Epithelial Cells Not seen Urine Bacteria Many Meds: Medications Discontinued Medications Generic Name Dose Route Start Last Admin Trade Name Freq PRN Reason Stop Dose Admin Lidocaine HCl 10 ml 03/13/20 16:14 03/13/20 16:44 Xylocaine 2% Jelly MUCMEM 03/13/20 16:15 10 ml ONETIME ONE Administration Departure - Departure Time of Disposition: 17:30 Disposition: Home, Self-Care 01 Condition: Good Clinical Impression: Retention of urine, UTI, Urinary tract infectious disease UTI (urinary tract infection) due to urinary indwelling catheter Qualifiers: Indwelling urinary catheter type: indwelling urethral catheter Encounter type: initial encounter Qualified Code(s): T83.511A - Infection and inflammatory reaction due to indwelling urethral catheter, initial encounter; N39.0 - Urinary tract infection, site not specified - Discharge Information Instructions: Indwelling Urinary Catheter Care, Adult Referrals: PCP,None [Primary Care Provider] - Forms: ED Department Discharge Additional Instructions: Follow up with primary care/urology as needed. Stay well hydrated. You have a UTI, please finish antibiotics and take as prescribed!!!!!!!!!! Return with any worsening symptoms or new concerns Sepsis Event Note (ED) - Evaluation Sepsis Screening Result: No Definite Risk - Focused Exam Vital Signs: Vital Signs Temp Pulse Resp BP Pulse Ox 03/13/20 16:32 36.3 C 76 14 162/48 H 97 - My Orders Last 24 Hours: My Active Orders 03/13/20 16:14 Urinary Catheter Assessment [RC] ASDIRECTED 03/13/20 16:15 Rodriguez Catheter Insertion [Insert Urinary Catheter] [OM.PC] Q24H 03/13/20 17:03 CULTURE URINE [RM] Stat - Assessment/Plan Last 24 Hours: My Active Orders 03/13/20 16:14 Urinary Catheter Assessment [RC] ASDIRECTED 03/13/20 16:15 Rodriguez Catheter Insertion [Insert Urinary Catheter] [OM.PC] Q24H 03/13/20 17:03 CULTURE URINE [RM] Stat
== END 2020-03-13 17:15 | disposition home or self-care (01) ==
LOC: JP.ED 16:10
DX: T83.511A Infection and inflammatory reaction due to indwelling urethral catheter, initial encounter (principal); N39.0 Urinary tract infection, site not specified; R33.9 Retention of urine, unspecified
CPT/HCPCS: 51702; 81001; 87086; 87088; 87186; 99283

== ENCOUNTER 2020-05-26 05:09 | Emergency (ER) | payer MEDICARE ==
[2020-05-26] MEDS ORDERED: Lidocaine 2% Jelly 10 ML Urojet MUCMEM ONE (05:33)
[2020-05-26 05:51] VITALS: BP 160/89; PULSE 75
--- NOTE | 2020-05-26 06:06 | EDM.PDOC ---
ED HPI GENERAL MEDICAL PROBLEM - General Chief Complaint: Genitourinary Problem Stated Complaint: TROUBLE URINATING Time Seen by Provider: 05/26/20 06:02 Source of Information: Reports: Patient, RN Notes Reviewed History Limitations: Reports: No Limitations - History of Present Illness INITIAL COMMENTS - FREE TEXT/NARRATIVE: 6-year-old gentleman presents emergency department today with complaint of catheter not functioning, he normally has a Rodriguez catheter in place with a leg bag unfortunately it started malfunctioning early this evening with leaking around the catheter. Bladder Pain Score (Numeric/FACES): 4 - Related Data Allergies Allergy/AdvReac Type Severity Reaction Status Date / Time No Known Allergies Allergy Verified 05/26/20 05:28 Home Meds: Home Meds Phenytoin [Dilantin] 30 mg PO DAILY 04/11/15 [History] Warfarin [Coumadin] 5 mg PO DAILY 04/11/15 [History] Phenytoin Sodium Extended [Dilantin] 500 mg PO DAILY 04/17/15 [History] Tamsulosin [Flomax] 0.4 mg PO DAILY #21 cap.er 06/23/19 [Rx] Past Medical History HEENT History: Reports: Impaired Vision Genitourinary History: Reports: Retention, Urinary, Other (See Below) Other Genitourinary History: 1st time urinary retention on 06/23/2019 Enlarged testicles Musculoskeletal History: Reports: Fracture Other Musculoskeletal History: right injury due to chain saw Neurological History: Reports: Seizure - Infectious Disease History Infectious Disease History: Reports: Chicken Pox - Past Surgical History Other Musculoskeletal Surgeries/Procedures:: right hand Social & Family History - Family History Family Medical History: No Pertinent Family History - Tobacco Use Tobacco Use Status *Q: Never Tobacco User Second Hand Smoke Exposure: No - Caffeine Use Caffeine Use: Reports: Coffee, Soda - Recreational Drug Use Recreational Drug Use: No ED ROS GENERAL - Review of Systems Review Of Systems: See Below Constitutional: Reports: No Symptoms : Reports: Urinary Retention ED EXAM, RENAL/ - Physical Exam Exam: See Below Text/Narrative:: My exam is done after the catheter has been replaced Exam Limited By: No Limitations General Appearance: Alert, WD/WN, No Apparent Distress GI/Abdominal: Soft, Non-Tender (Male) Exam: Scrotal Swelling (Suspicious for underlying hernia). No: Scrotum Tenderness (L), Scrotum Tenderness (R), Testicular Tenderness (L), Testicular Tenderness (R) Course - Vital Signs Last Recorded V/S: Last Vital Signs Temp 96.3 F L 05/26/20 05:49 Pulse 75 05/26/20 05:49 Resp 16 05/26/20 05:49 BP 160/89 H 05/26/20 05:49 Pulse Ox 98 05/26/20 05:49 - Orders/Labs/Meds Orders: Active Orders 24 hr Category Date Time Status Insert Rodriguez Catheter [Insert Urinary Catheter] [OM.PC] Care 05/26/20 05:30 Ordered Q24H Urinary Catheter Assessment [RC] ASDIRECTED Care 05/26/20 05:25 Active Meds: Medications Discontinued Medications Generic Name Dose Route Start Last Admin Trade Name Filiberto PRN Reason Stop Dose Admin Lidocaine HCl 10 ml 05/26/20 05:33 Xylocaine 2% Jelly MUCMEM 05/26/20 05:34 ONETIME ONE Departure - Departure Time of Disposition: 06:05 Disposition: Home, Self-Care 01 Condition: Fair Clinical Impression: Urinary retention, Retention of urine Rodriguez catheter problem Qualifiers: Encounter type: initial encounter Qualified Code(s): T83.9XXA - Unspecified complication of genitourinary prosthetic device, implant and graft, initial encounter - Discharge Information Instructions: Indwelling Urinary Catheter Care, Adult Referrals: Aniket Gan MD [Primary Care Provider] - Forms: ED Department Discharge Additional Instructions: Continue on your regular medications, keep follow-up appointments with urology call or return to the emergency department with worsening of symptoms Sepsis Event Note (ED) - Evaluation Sepsis Screening Result: No Definite Risk - Focused Exam Vital Signs: Vital Signs Temp Pulse Resp BP Pulse Ox 05/26/20 05:49 96.3 F L 75 16 160/89 H 98 - My Orders Last 24 Hours: My Active Orders 05/26/20 05:25 Urinary Catheter Assessment [RC] ASDIRECTED 05/26/20 05:30 Insert Rodriguez Catheter [Insert Urinary Catheter] [OM.PC] Q24H - Assessment/Plan Last 24 Hours: My Active Orders 05/26/20 05:25 Urinary Catheter Assessment [RC] ASDIRECTED 05/26/20 05:30 Insert Rodriguez Catheter [Insert Urinary Catheter] [OM.PC] Q24H Plan: Assessment Acuity = acute Site and laterality = catheter dysfunction Etiology = unknown Manifestations = none Location of injury = Home Lab values = none Plan Symptom resolution with replacement of catheter keep follow-up appointments with urology This note was dictated using [employer] voice recognition software please call with any questions on syntax or grammar.
== END 2020-05-26 06:11 | disposition home or self-care (01) ==
LOC: JP.ED 05:09
DX: T83.098A Other mechanical complication of other urinary catheter, initial encounter (principal); R56.9 Unspecified convulsions; R33.9 Retention of urine, unspecified; Z79.01 Long term (current) use of anticoagulants; Z79.899 Other long term (current) drug therapy
CPT/HCPCS: 51702; 99283

== ENCOUNTER 2020-06-05 21:50 | Emergency (ER) | payer MEDICARE ==
[2020-06-05 22:38] VITALS: BP 163/90; PULSE 70
--- NOTE | 2020-06-05 22:53 | EDM.PDOC ---
ED HPI GENERAL MEDICAL PROBLEM - General Chief Complaint: Genitourinary Problem Stated Complaint: NEEDS A CATHETER Time Seen by Provider: 06/05/20 22:52 Source of Information: Reports: Patient History Limitations: Reports: No Limitations - History of Present Illness INITIAL COMMENTS - FREE TEXT/NARRATIVE: 69-year-old male with an indwelling Rodriguez catheter, it became plugged earlier today. He remove the catheter himself and came in just to have it replaced. Onset: Sudden Duration: Hour(s): (Problems for the past 4 or 5 hours) Associated Symptoms: Reports: No Other Symptoms - Related Data Allergies Allergy/AdvReac Type Severity Reaction Status Date / Time No Known Allergies Allergy Verified 06/05/20 22:49 Home Meds: Home Meds Phenytoin [Dilantin] 30 mg PO DAILY 04/11/15 [History] Warfarin [Coumadin] 5 mg PO DAILY 04/11/15 [History] Phenytoin Sodium Extended [Dilantin] 500 mg PO DAILY 04/17/15 [History] Tamsulosin [Flomax] 0.4 mg PO DAILY #21 cap.er 06/23/19 [Rx] Past Medical History HEENT History: Reports: Impaired Vision Genitourinary History: Reports: Retention, Urinary, Other (See Below) Other Genitourinary History: 1st time urinary retention on 06/23/2019 Enlarged testicles Musculoskeletal History: Reports: Fracture Other Musculoskeletal History: right injury due to chain saw Neurological History: Reports: Seizure - Infectious Disease History Infectious Disease History: Reports: Chicken Pox - Past Surgical History Musculoskeletal Surgical History: Reports: Other (See Below) Other Musculoskeletal Surgeries/Procedures:: right hand Social & Family History - Family History Family Medical History: No Pertinent Family History - Caffeine Use Caffeine Use: Reports: Coffee, Soda ED ROS GENERAL - Review of Systems Review Of Systems: See Below Constitutional: Denies: Fever, Chills Respiratory: Reports: No Symptoms Cardiovascular: Reports: No Symptoms GI/Abdominal: Reports: No Symptoms Neurological: Denies: Headache ED EXAM, RENAL/ - Physical Exam Exam: See Below Exam Limited By: No Limitations General Appearance: Alert, No Apparent Distress Head: Atraumatic Respiratory/Chest: No Respiratory Distress GI/Abdominal: Other (Some mild lower abdominal discomfort) Neurological: Alert, Oriented Course - Vital Signs Last Recorded V/S: Last Vital Signs Temp 97.1 F 06/05/20 22:55 Pulse 70 06/05/20 22:55 Resp 14 06/05/20 22:55 BP 163/90 H 06/05/20 22:55 Pulse Ox 97 06/05/20 22:55 - Re-Assessments/Exams Free Text/Narrative Re-Assessment/Exam: 06/06/20 01:14 Bladder scan was done that showed 270 cc urine, a new Rodriguez was placed without difficulty. Clear urine was released and the patient was comfortable going home. Departure - Departure Time of Disposition: 23:03 Disposition: Home, Self-Care 01 Clinical Impression: Malfunction of Rodriguez catheter Qualifiers: Encounter type: initial encounter Qualified Code(s): T83.011A - Breakdown (mechanical) of indwelling urethral catheter, initial encounter - Discharge Information Instructions: Indwelling Urinary Catheter Care, Adult Referrals: Aniket Gan MD [Primary Care Provider] - Forms: ED Department Discharge Care Plan Goals: Continue Rodriguez care as usual, no medication changes at this time. Return if problems redevelop or you have other concerns. Sepsis Event Note (ED) - Focused Exam Vital Signs: Vital Signs Temp Pulse Resp BP Pulse Ox 06/05/20 22:55 97.1 F 70 14 163/90 H 97 06/05/20 22:36 97.1 F 70 14 163/90 H 97
== END 2020-06-05 23:03 | disposition home or self-care (01) ==
LOC: JP.ED 21:50
DX: T83.018A Breakdown (mechanical) of other urinary catheter, initial encounter (principal); Z79.01 Long term (current) use of anticoagulants; Z79.899 Other long term (current) drug therapy
CPT/HCPCS: 51702; 51798; 99283; 99283-25

== ENCOUNTER 2020-06-20 06:48 | Emergency (ER) | payer MEDICARE ==
[2020-06-20 07:23] VITALS: BP 167/94; PULSE 75
[2020-06-20] MEDS ORDERED: Cephalexin 250 MG Cap PO ONE (07:44)
--- NOTE | 2020-06-20 07:46 | EDM.PDOC ---
ED HPI GENERAL MEDICAL PROBLEM - General Chief Complaint: Genitourinary Problem Stated Complaint: CATH ISSUES Time Seen by Provider: 06/20/20 07:30 Source of Information: Reports: Patient, Old Records, RN History Limitations: Reports: No Limitations - History of Present Illness INITIAL COMMENTS - FREE TEXT/NARRATIVE: 69 yo male's ramos got plugged last night so he took it out. He presents this morning requesting a new one. No other concerns. Onset Date: 06/19/20 Duration: Hour(s): (12) Location: Reports: Pelvis Quality: Reports: Pressure (mild) Severity: Mild Improves with: Reports: Other (catheter replacement) Worsens with: Reports: Other (time) Context: Reports: Other (See HPI) Associated Symptoms: Denies: Fever/Chills, Nausea/Vomiting Treatments [employer]: Reports: Other (see below) (none) - Related Data Allergies Allergy/AdvReac Type Severity Reaction Status Date / Time No Known Allergies Allergy Verified 06/05/20 22:49 Home Meds: Home Meds Phenytoin [Dilantin] 30 mg PO DAILY 04/11/15 [History] Warfarin [Coumadin] 5 mg PO DAILY 04/11/15 [History] Phenytoin Sodium Extended [Dilantin] 500 mg PO DAILY 04/17/15 [History] Tamsulosin [Flomax] 0.4 mg PO DAILY #21 cap.er 06/23/19 [Rx] cephALEXin [Cephalexin] 500 mg PO Q8H #14 capsule 06/20/20 [Rx] Past Medical History HEENT History: Reports: Impaired Vision Cardiovascular History: Reports: Blood Clots/VTE/DVT Genitourinary History: Reports: BPH, Prostate Disorder, Retention, Urinary, Other (See Below) Other Genitourinary History: 1st time urinary retention on 06/23/2019 Enlarged testicles Musculoskeletal History: Reports: Fracture Other Musculoskeletal History: right injury due to chain saw Neurological History: Reports: Seizure - Infectious Disease History Infectious Disease History: Reports: Chicken Pox - Past Surgical History Musculoskeletal Surgical History: Reports: Other (See Below) Other Musculoskeletal Surgeries/Procedures:: right hand Social & Family History - Family History Family Medical History: No Pertinent Family History - Tobacco Use Tobacco Use Status *Q: Never Tobacco User - Caffeine Use Caffeine Use: Reports: None - Recreational Drug Use Recreational Drug Use: No ED ROS GENERAL - Review of Systems Review Of Systems: See Below Constitutional: Reports: No Symptoms : Reports: Urinary Retention, Other (ramos plugged last night) Skin: Reports: No Symptoms Neurological: Reports: No Symptoms ED EXAM, RENAL/ - Physical Exam Exam: See Below Exam Limited By: No Limitations General Appearance: Alert, WD/WN, No Apparent Distress (Male) Exam: No: Suprapubic Fullness Back Exam: No: CVA Tenderness (R), CVA Tenderness (L) Extremities: Normal Inspection Neurological: Alert, Oriented, CN II-XII Intact, Normal Cognition, No Motor/Sensory Deficits Psychiatric: Normal Affect, Normal Mood Skin Exam: Warm, Dry, Intact, Normal Color, No Rash Course - Vital Signs Last Recorded V/S: Last Vital Signs Temp 36.3 C 06/20/20 07:08 Pulse 75 06/20/20 07:08 Resp 18 06/20/20 07:08 BP 167/94 H 06/20/20 07:08 Pulse Ox 97 06/20/20 07:08 - Orders/Labs/Meds Orders: Active Orders 24 hr Category Date Time Status Ramos Catheter Insertion [Insert Urinary Catheter] [OM. Care 06/20/20 07:15 Ordered PC] Q24H Urinary Catheter Assessment [RC] ASDIRECTED Care 06/20/20 07:10 Active Labs: Laboratory Tests 06/20/20 Range/Units 07:26 Urine Color Yellow (YELLOW) Urine Appearance Cloudy A (CLEAR) Urine pH 6.0 (5.0-8.0) Ur Specific [place] 1.025 (1.008-1.030) Urine Protein Negative (NEGATIVE) mg/dL Urine Glucose (UA) Negative (NEGATIVE) mg/dL Urine Ketones Negative (NEGATIVE) mg/dL Urine Occult Blood Moderate H (NEGATIVE) Urine Nitrite Negative (NEGATIVE) Urine Bilirubin Negative (NEGATIVE) Urine Urobilinogen 0.2 (0.2-1.0) EU/dL Ur Leukocyte Esterase Small H (NEGATIVE) Urine RBC 20-30 H (0-5) Urine WBC 30-40 H (0-5) Ur Epithelial Cells Not seen Amorphous Sediment Not seen Urine Bacteria Moderate Urine Mucus Few Departure - Departure Time of Disposition: 07:47 Disposition: Home, Self-Care 01 Clinical Impression: UTI (urinary tract infection) Qualifiers: Urinary tract infection type: acute cystitis Hematuria presence: without hematuria Qualified Code(s): N30.00 - Acute cystitis without hematuria Ramos catheter problem Qualifiers: Encounter type: initial encounter Qualified Code(s): T83.9XXA - Unspecified complication of genitourinary prosthetic device, implant and graft, initial encounter - Discharge Information *PRESCRIPTION DRUG MONITORING PROGRAM REVIEWED*: Not Applicable *COPY OF PRESCRIPTION DRUG MONITORING REPORT IN PATIENT YARELY: Not Applicable Referrals: Aniket Gan MD [Primary Care Provider] - Additional Instructions: Take cephalexin as directed. Follow up with your doctor in about 3 days to review your urine culture and see if you need a change in antibiotics. Drink enough fluids so your urine is light yellow in color. Return as needed. Sepsis Event Note (ED) - Evaluation Sepsis Screening Result: No Definite Risk - Focused Exam Vital Signs: Vital Signs Temp Pulse Resp BP Pulse Ox 06/20/20 07:08 36.3 C 75 18 167/94 H 97 - My Orders Last 24 Hours: My Active Orders 06/20/20 07:10 Urinary Catheter Assessment [RC] ASDIRECTED 06/20/20 07:15 Ramos Catheter Insertion [Insert Urinary Catheter] [OM.PC] Q24H - Assessment/Plan Last 24 Hours: My Active Orders 06/20/20 07:10 Urinary Catheter Assessment [RC] ASDIRECTED 06/20/20 07:15 Ramos Catheter Insertion [Insert Urinary Catheter] [OM.PC] Q24H
== END 2020-06-20 08:00 | disposition home or self-care (01) ==
LOC: JP.ED 06:48
DX: Z46.6 Encounter for fitting and adjustment of urinary device (principal); N30.00 Acute cystitis without hematuria; N40.1 Benign prostatic hyperplasia with lower urinary tract symptoms; R33.8 Other retention of urine; Z79.01 Long term (current) use of anticoagulants; Z79.899 Other long term (current) drug therapy
CPT/HCPCS: 51702; 81001; 87086; 87088; 87186; 99283; 99283-25

== ENCOUNTER 2020-07-09 16:12 | Emergency (ER) | payer MEDICARE ==
[2020-07-09 16:49] VITALS: BP 157/80; PULSE 78
--- NOTE | 2020-07-09 17:07 | EDM.PDOC ---
ED HPI GENERAL MEDICAL PROBLEM - General Chief Complaint: Genitourinary Problem Stated Complaint: WOULD LIKE A CATHETER PUT IN Time Seen by Provider: 07/09/20 17:02 Source of Information: Reports: Patient History Limitations: Reports: No Limitations - History of Present Illness INITIAL COMMENTS - FREE TEXT/NARRATIVE: pt had a cath which has been ongoing. He took it out at home and he wants the cath replaced. Onset: Today, Sudden Duration: Hour(s): Location: Reports: Other ( urinary retention) Associated Symptoms: Reports: No Other Symptoms - Related Data Allergies Allergy/AdvReac Type Severity Reaction Status Date / Time No Known Allergies Allergy Verified 07/09/20 16:42 Home Meds: Home Meds Phenytoin [Dilantin] 30 mg PO DAILY 04/11/15 [History] Warfarin [Coumadin] 5 mg PO DAILY 04/11/15 [History] Phenytoin Sodium Extended [Dilantin] 500 mg PO DAILY 04/17/15 [History] Tamsulosin [Flomax] 0.4 mg PO DAILY #21 cap.er 06/23/19 [Rx] Past Medical History HEENT History: Reports: Impaired Vision Cardiovascular History: Reports: Blood Clots/VTE/DVT Genitourinary History: Reports: BPH, Prostate Disorder, Retention, Urinary, Other (See Below) Other Genitourinary History: 1st time urinary retention on 06/23/2019 Enlarged testicles Musculoskeletal History: Reports: Fracture Other Musculoskeletal History: right injury due to chain saw Neurological History: Reports: Seizure - Infectious Disease History Infectious Disease History: Reports: Chicken Pox - Past Surgical History Musculoskeletal Surgical History: Reports: Other (See Below) Other Musculoskeletal Surgeries/Procedures:: right hand Social & Family History - Family History Family Medical History: No Pertinent Family History - Tobacco Use Tobacco Use Status *Q: Never Tobacco User - Caffeine Use Caffeine Use: Reports: None ED ROS GENERAL - Review of Systems Review Of Systems: See Below Constitutional: Reports: No Symptoms HEENT: Reports: No Symptoms Respiratory: Reports: No Symptoms Cardiovascular: Reports: No Symptoms Endocrine: Reports: No Symptoms GI/Abdominal: Reports: No Symptoms : Reports: Other ( cath was not draining. ) Skin: Reports: No Symptoms ED EXAM, RENAL/ - Physical Exam Exam: See Below Text/Narrative:: pt arrived because his ramos got plugged and was not draining. He took the cath out and he is here to have the cath replaced. Exam Limited By: No Limitations General Appearance: Alert, Anxious (Male) Exam: Other (pt is hjere to have his cath replaced. ) Rectal (Males) Exam: Deferred Back Exam: Normal Inspection Extremities: Normal Inspection Course - Vital Signs Last Recorded V/S: Last Vital Signs Temp 36.2 C 07/09/20 16:48 Pulse 78 07/09/20 16:48 Resp 14 07/09/20 16:48 BP 157/80 H 07/09/20 16:48 Pulse Ox 96 07/09/20 16:48 - Orders/Labs/Meds Orders: Active Orders 24 hr Category Date Time Status Ramos Catheter Insertion [Insert Urinary Catheter] [OM. Care 07/09/20 17:15 Ordered PC] Q24H Urinary Catheter Assessment [RC] ASDIRECTED Care 07/09/20 17:01 Active CULTURE URINE [RM] Stat Lab 07/09/20 17:42 Ordered Labs: Laboratory Tests 07/09/20 Range/Units 17:01 Urine Color Yellow (YELLOW) Urine Appearance Cloudy A (CLEAR) Urine pH 8.5 H (5.0-8.0) Ur Specific [place] 1.020 (1.008-1.030) Urine Protein 100 H (NEGATIVE) mg/dL Urine Glucose (UA) Negative (NEGATIVE) mg/dL Urine Ketones Trace H (NEGATIVE) mg/dL Urine Occult Blood Moderate H (NEGATIVE) Urine Nitrite Positive H (NEGATIVE) Urine Bilirubin Negative (NEGATIVE) Urine Urobilinogen 0.2 (0.2-1.0) EU/dL Ur Leukocyte Esterase Large H (NEGATIVE) Urine RBC 50-75 H (0-5) Urine WBC Semi-packed H (0-5) Ur Epithelial Cells Few Amorphous Sediment Not seen Urine Bacteria Many Urine Mucus Not seen Urine Other - Re-Assessments/Exams Free Text/Narrative Re-Assessment/Exam: 07/09/20 17:09 ramos was replaced without difficulty. 07/09/20 17:44 ua did look infected . will cover with cipro to prevent a acute infection after the cath change. Departure - Departure Time of Disposition: 17:45 Disposition: Home, Self-Care 01 Condition: Fair Clinical Impression: Urinary retention, Status post insertion of Ramos catheter UTI (urinary tract infection) Qualifiers: Urinary tract infection type: acute cystitis Hematuria presence: without hematuria Qualified Code(s): N30.00 - Acute cystitis without hematuria - Discharge Information Referrals: Aniket Gan MD [Primary Care Provider] - Forms: ED Department Discharge Care Plan Goals: usual ramos cath care, follow with own provider. push fluids, cipro 500mg bid for 5 days. Sepsis Event Note (ED) - Evaluation Sepsis Screening Result: No Definite Risk - Focused Exam Vital Signs: Vital Signs Temp Pulse Resp BP Pulse Ox 07/09/20 16:48 36.2 C 78 14 157/80 H 96 - My Orders Last 24 Hours: My Active Orders 07/09/20 17:01 Urinary Catheter Assessment [RC] ASDIRECTED 07/09/20 17:15 Ramos Catheter Insertion [Insert Urinary Catheter] [OM.PC] Q24H 07/09/20 17:42 CULTURE URINE [RM] Stat - Assessment/Plan Last 24 Hours: My Active Orders 07/09/20 17:01 Urinary Catheter Assessment [RC] ASDIRECTED 07/09/20 17:15 Ramos Catheter Insertion [Insert Urinary Catheter] [OM.PC] Q24H 07/09/20 17:42 CULTURE URINE [RM] Stat
== END 2020-07-09 18:00 | disposition home or self-care (01) ==
LOC: JP.ED 16:12
DX: N30.00 Acute cystitis without hematuria (principal); R33.9 Retention of urine, unspecified; Z86.718 Personal history of other venous thrombosis and embolism; Z79.01 Long term (current) use of anticoagulants; Z79.899 Other long term (current) drug therapy
CPT/HCPCS: 51702; 81001; 87086; 87088; 87186; 99283-25

== ENCOUNTER 2020-08-24 21:51 | Emergency (ER) | payer MEDICARE ==
[2020-08-24] MEDS ORDERED: Lidocaine 2% Jelly 10 ML Urojet MUCMEM ONE (22:09)
--- NOTE | 2020-08-24 22:37 | EDM.PDOC ---
ED HPI GENERAL MEDICAL PROBLEM - General Chief Complaint: Genitourinary Problem Stated Complaint: NEEDS A CATHETER Time Seen by Provider: 08/24/20 22:20 Source of Information: Reports: Patient History Limitations: Reports: No Limitations - History of Present Illness INITIAL COMMENTS - FREE TEXT/NARRATIVE: 70-year-old male with a chronic indwelling Rodriguez, presents with acute urinary retention. His Rodriguez catheter got plugged, he tried to clear it but it was unsuccessful so he removed it and came in to get another catheter. No fevers or chills. This is a recurring problem for him, he usually "gets a 16-gauge catheter". Onset: Sudden (Rodriguez became obstructed earlier today) Duration: Other (Inability to urinate for the past 6 hours) Associated Symptoms: Reports: No Other Symptoms bladder Pain Score (Numeric/FACES): 8 - Related Data Allergies Allergy/AdvReac Type Severity Reaction Status Date / Time No Known Allergies Allergy Verified 08/24/20 22:31 Home Meds: Home Meds Phenytoin [Dilantin] 30 mg PO DAILY 04/11/15 [History] Warfarin [Coumadin] 5 mg PO DAILY 04/11/15 [History] Phenytoin Sodium Extended [Dilantin] 500 mg PO DAILY 04/17/15 [History] Tamsulosin [Flomax] 0.4 mg PO DAILY #21 cap.er 06/23/19 [Rx] Past Medical History HEENT History: Reports: Impaired Vision Cardiovascular History: Reports: Blood Clots/VTE/DVT Genitourinary History: Reports: BPH, Prostate Disorder, Retention, Urinary, Other (See Below) Other Genitourinary History: 1st time urinary retention on 06/23/2019 Enlarged testicles Musculoskeletal History: Reports: Fracture Other Musculoskeletal History: right injury due to chain saw Neurological History: Reports: Seizure - Infectious Disease History Infectious Disease History: Reports: Chicken Pox - Past Surgical History Musculoskeletal Surgical History: Reports: Other (See Below) Other Musculoskeletal Surgeries/Procedures:: right hand Social & Family History - Family History Family Medical History: No Pertinent Family History - Caffeine Use Caffeine Use: Reports: None ED ROS GENERAL - Review of Systems Review Of Systems: See Below Constitutional: Denies: Fever, Chills Respiratory: Denies: Shortness of Breath Cardiovascular: Denies: Chest Pain GI/Abdominal: Reports: Abdominal Pain (Lower abdomen) : Reports: Urinary Retention Neurological: Reports: No Symptoms ED EXAM, RENAL/ - Physical Exam Exam: See Below Exam Limited By: No Limitations General Appearance: Alert, Anxious, Mild Distress (Fairly uncomfortable) Head: Atraumatic Respiratory/Chest: No Respiratory Distress GI/Abdominal: Other (Tender over the lower abdomen with bladder distention) Course - Vital Signs Last Recorded V/S: Last Vital Signs Temp 97.6 F 08/24/20 22:32 Pulse 91 08/24/20 22:38 Resp 16 08/24/20 22:38 BP 163/109 H 08/24/20 22:38 Pulse Ox 96 08/24/20 22:38 - Orders/Labs/Meds Meds: Medications Discontinued Medications Generic Name Dose Route Start Last Admin Trade Name Filiberto PRN Reason Stop Dose Admin Lidocaine HCl 10 ml 08/24/20 22:09 08/24/20 22:37 Xylocaine 2% Jelly MUCMEM 08/24/20 22:10 10 ml ONETIME ONE Administration - Re-Assessments/Exams Free Text/Narrative Re-Assessment/Exam: 08/24/20 22:41 16-gauge Rodriguez catheter was placed without difficulty and almost 1 L of clear urine was released. Patient symptoms resolved. He can recheck with his primary providers as needed, no further evaluation or treatment needed at this visit. Departure - Departure Time of Disposition: 22:48 Disposition: Home, Self-Care 01 Clinical Impression: Retention of urine Rodriguez catheter problem Qualifiers: Encounter type: initial encounter Qualified Code(s): T83.9XXA - Unspecified complication of genitourinary prosthetic device, implant and graft, initial encounter - Discharge Information Instructions: Indwelling Urinary Catheter Care, Adult Referrals: Aniket Gan MD [Primary Care Provider] - Forms: ED Department Discharge Care Plan Goals: Continue your catheter care and medications as before. Return anytime if problems or concerns. Sepsis Event Note (ED) - Evaluation Sepsis Screening Result: No Definite Risk - Focused Exam Vital Signs: Vital Signs Temp Pulse Resp BP Pulse Ox 08/24/20 22:38 91 16 163/109 H 96 08/24/20 22:32 97.6 F 80 16 188/106 H 96 08/24/20 22:08 97.6 F 80 16 188/106 H 96
[2020-08-24 22:40] VITALS: BP 163/109; PULSE 91
== END 2020-08-24 22:54 | disposition home or self-care (01) ==
LOC: JP.ED 21:51
DX: N40.1 Benign prostatic hyperplasia with lower urinary tract symptoms (principal); R33.8 Other retention of urine; N42.9 Disorder of prostate, unspecified; Z79.899 Other long term (current) drug therapy; Z79.01 Long term (current) use of anticoagulants; Z86.718 Personal history of other venous thrombosis and embolism
CPT/HCPCS: 51702; 99282; 99283-25

== ENCOUNTER 2020-09-04 14:30 | Emergency (ER) | payer MEDICARE ==
--- NOTE | 2020-09-04 14:42 | EDM.PDOC ---
ED HPI GENERAL MEDICAL PROBLEM - General Chief Complaint: Genitourinary Problem Stated Complaint: CATHEDER ISSUE Time Seen by Provider: 09/04/20 14:40 Source of Information: Reports: Patient History Limitations: Reports: No Limitations (patient arrives ambulatory via triage during covid pandemic. ) - History of Present Illness INITIAL COMMENTS - FREE TEXT/NARRATIVE: Patient presents to the ER, ambulatory, requesting a Ramos catheter. He notes a history of enlarged prostate and is on Flomax and that his "catheters has been out". Patient notes he remove the catheter that was in his bladder as it was plugged. He reports he has had difficulty with urine in his bladder and waking up at night since then. In review of medical records patient last was seen at this hospital and a Ramos catheter placed 11 days ago. He has a history of frequent ED visits for similar complaints requesting Ramos catheter exchanged replacement or he has remove the catheter himself at home. He denies any fevers, chills, runny nose, sore throat or cough. He notes he previously has been referred to urology in [place] and has not followed up and has no intent to do so. He has had ongoing urinary difficulties for over a year. He notes he occasionally comes to the hospital ER for Ramos catheter placement utilizes a "16" Ramos. Patient notes she has no intent or desire to see a urologist. He reports his has told his physician Dr. Gan about this (no intent to see a urologist)" Patient denies any runny nose, sore throat, cough, change in taste or smell. He has had no diarrhea. He denies any weakness, chest pain or shortness of breath. He is on home Flomax, Coumadin. He notes even take his medications. No recent antibiotics. In review of previous ED visits patient has had previous urinalysis was treated with either Keflex or Cipro. He has not been on any antibiotics in the last month or so. - Related Data Allergies Allergy/AdvReac Type Severity Reaction Status Date / Time No Known Allergies Allergy Verified 09/04/20 14:58 Home Meds: Home Meds Phenytoin [Dilantin] 30 mg PO DAILY 04/11/15 [History] Warfarin [Coumadin] 5 mg PO DAILY 04/11/15 [History] Phenytoin Sodium Extended [Dilantin] 500 mg PO DAILY 04/17/15 [History] Tamsulosin [Flomax] 0.4 mg PO DAILY #21 cap.er 06/23/19 [Rx] Past Medical History HEENT History: Reports: Impaired Vision Cardiovascular History: Reports: Blood Clots/VTE/DVT Genitourinary History: Reports: BPH, Prostate Disorder, Retention, Urinary, Other (See Below) Other Genitourinary History: 1st time urinary retention on 06/23/2019 Enlarged testicles Musculoskeletal History: Reports: Fracture Other Musculoskeletal History: right injury due to chain saw Neurological History: Reports: Seizure - Infectious Disease History Infectious Disease History: Reports: Chicken Pox - Past Surgical History Musculoskeletal Surgical History: Reports: Other (See Below) Other Musculoskeletal Surgeries/Procedures:: right hand Social & Family History - Family History Family Medical History: No Pertinent Family History - Caffeine Use Caffeine Use: Reports: None ED ROS GENERAL - Review of Systems Review Of Systems: See Below (all other 10 ros is negative.) Constitutional: Reports: No Symptoms. Denies: Fever, Chills, Malaise, Weakness Respiratory: Reports: No Symptoms Cardiovascular: Reports: No Symptoms Endocrine: Reports: No Symptoms GI/Abdominal: Denies: Abdominal Pain, Black Stool, Constipation, Diarrhea, Stool Incontinence, Vomiting : Reports: Frequency, Urinary Retention Musculoskeletal: Reports: No Symptoms Skin: Reports: No Symptoms Neurological: Reports: No Symptoms. Denies: Numbness, Difficulty Walking, Weakness Psychiatric: Reports: No Symptoms Hematologic/Lymphatic: Reports: No Symptoms Immunologic: Reports: No Symptoms ED EXAM, RENAL/ - Physical Exam Exam: See Below Exam Limited By: No Limitations General Appearance: Alert, No Apparent Distress, Other (arrives via triage. ) Ears: Hearing Grossly Normal Neck: Normal Inspection Respiratory/Chest: No Respiratory Distress Cardiovascular: Normal Peripheral Pulses, Regular Rate, Rhythm GI/Abdominal: Normal Bowel Sounds, Soft, Non-Tender, No Distention, No Mass (Male) Exam: Normal Inspection, Circumcised, Scrotal Swelling, Suprapubic Fullness, Other (no scrotal tenderness or massess. has scrotal swelling, per patient this is chronic. no lesions or signs of skin infection/masses . ). No: Rash, Scrotum Tenderness (L), Scrotum Tenderness (R), Testicular Tenderness (L), Testicular Tenderness (R), Urethral Discharge Back Exam: Full Range of Motion Extremities: Non-Tender, No Pedal Edema Neurological: Alert, Oriented, Normal Cognition, No Motor/Sensory Deficits Psychiatric: Normal Affect, Normal Mood Skin Exam: Warm, Intact, No Rash, Other (on exposed skin) Lymphatic: No Adenopathy Course - Vital Signs Text/Narrative:: Patient underwent a history and physical emanation. He is presenting requesting a Ramos catheter be placed. Chart review indicates he has a history of frequent Ramos catheter use and ED visits for replacement or exchange multiple times in the past year. He is occasionally with antibiotics and other times he is not. He notes he is on referred to urology and he is not willing to or have any intent to see urology in follow-up. Patient indicates he does take Flomax. Patient is aware of that because of his urinary tension could include but not be limited to BPH, neoplasm. Patient is polite and interactive. He is not homicidal, suicidal or psychotic. There is no evidence of leg weakness or saddle numbness to suggest cauda equina syndrome. I attempted to locate local urologist as the patient considered and be willing to see urologist in this area but does not have any intent to travel to [place]. I spoke to the hospitalist who indicates that there is no definitive urologic service locally but at times a Urologic PA may visit the area at [facility]. I updated the patient with this information and have asked that he speak to his primary care physician about attempting to obtain a urologist locally. Patient voiced understanding. I also placed the patient's name/demographics on the ED follow up list for Sunday staff to call patient/PMD (Dr. Gan) to facilitate urology follow up and ED follow up. test pending: urine culture, 1st dose keflex po in ED Rx: keflex x 7 days TID F/U: Dr. Gan, this week, PMD to follow urine culture and facilitate urology follow up Recheck INR this week, keflex may alter INR. your inr is low today. you should take an extra dose of coumadin today (a full pill) and then your coumadin as prescribed. recheck your INR this week. Do not miss or skin any doses. patient voiced understanding of these instructions and could reiterate to me the plan, including starting keflex today and taking the extra dose of coumadin today. Last Recorded V/S: Last Vital Signs Temp 38.0 C 09/04/20 14:57 Pulse 87 09/04/20 14:57 Resp 18 09/04/20 14:57 BP 176/90 H 09/04/20 14:57 Pulse Ox 97 09/04/20 14:57 - Orders/Labs/Meds Orders: Active Orders 24 hr Category Date Time Status Ramos Catheter Insertion [Insert Urinary Catheter] [OM. Care 09/04/20 15:45 Ordered PC] Q24H Urinary Catheter Assessment [RC] ASDIRECTED Care 09/04/20 15:35 Active CULTURE URINE [RM] Stat Lab 09/04/20 15:12 Received Labs: Laboratory Tests 09/04/20 09/04/20 09/04/20 Range/Units 15:13 15:33 15:33 WBC 16.3 H (4.5-11.0) K/uL RBC 4.92 (4.30-5.90) M/uL Hgb 15.1 H (12.0-15.0) g/dL Hct 45.6 (40.0-54.0) % MCV 93 (80-98) fL MCH 31 (27-31) pg MCHC 33 (32-36) % Plt Count 246 (150-400) K/uL Neut % (Auto) 79 H (36-66) % Lymph % (Auto) 11 L (24-44) % Drew % (Auto) 10 H (2-6) % Eos % (Auto) 1 L (2-4) % Baso % (Auto) 0 (0-1) % PT (9.5-12.0) sec INR (0.80-1.20) Sodium 139 L (140-148) mmol/L Potassium 4.1 (3.6-5.2) mmol/L Chloride 104 (100-108) mmol/L Carbon Dioxide 27 (21-32) mmol/L Anion Gap 12.1 (5.0-14.0) mmol/L BUN 22 H D (7-18) mg/dL Creatinine 1.2 (0.8-1.3) mg/dL Est Cr Clr Drug Dosing 58.30 mL/min Estimated GFR (MDRD) 60 (>60) Glucose 122 H (74-106) mg/dL Calcium 8.8 (8.5-10.1) mg/dL Urine Color Yellow (YELLOW) Urine Appearance Turbid A (CLEAR) Urine pH 7.0 (5.0-8.0) Ur Specific [place] 1.020 (1.008-1.030) Urine Protein >=300 H (NEGATIVE) mg/dL Urine Glucose (UA) Negative (NEGATIVE) mg/dL Urine Ketones Trace H (NEGATIVE) mg/dL Urine Occult Blood Large H (NEGATIVE) Urine Nitrite Positive H (NEGATIVE) Urine Bilirubin Small H (NEGATIVE) Urine Urobilinogen 1.0 (0.2-1.0) EU/dL Ur Leukocyte Esterase Small H (NEGATIVE) Urine RBC Semi-packed H (0-5) Urine WBC Packed H (0-5) Ur Epithelial Cells Not seen Amorphous Sediment Many Urine Bacteria Many Urine Mucus Rare Urine Other 09/04/20 Range/Units 15:33 WBC (4.5-11.0) K/uL RBC (4.30-5.90) M/uL Hgb (12.0-15.0) g/dL Hct (40.0-54.0) % MCV (80-98) fL MCH (27-31) pg MCHC (32-36) % Plt Count (150-400) K/uL Neut % (Auto) (36-66) % Lymph % (Auto) (24-44) % Drew % (Auto) (2-6) % Eos % (Auto) (2-4) % Baso % (Auto) (0-1) % PT 18.0 H (9.5-12.0) sec INR 1.67 H (0.80-1.20) Sodium (140-148) mmol/L Potassium (3.6-5.2) mmol/L Chloride (100-108) mmol/L Carbon Dioxide (21-32) mmol/L Anion Gap (5.0-14.0) mmol/L BUN (7-18) mg/dL Creatinine (0.8-1.3) mg/dL Est Cr Clr Drug Dosing mL/min Estimated GFR (MDRD) (>60) Glucose (74-106) mg/dL Calcium (8.5-10.1) mg/dL Urine Color (YELLOW) Urine Appearance (CLEAR) Urine pH (5.0-8.0) Ur Specific [place] (1.008-1.030) Urine Protein (NEGATIVE) mg/dL Urine Glucose (UA) (NEGATIVE) mg/dL Urine Ketones (NEGATIVE) mg/dL Urine Occult Blood (NEGATIVE) Urine Nitrite (NEGATIVE) Urine Bilirubin (NEGATIVE) Urine Urobilinogen (0.2-1.0) EU/dL Ur Leukocyte Esterase (NEGATIVE) Urine RBC (0-5) Urine WBC (0-5) Ur Epithelial Cells Amorphous Sediment Urine Bacteria Urine Mucus Urine Other Meds: Medications Discontinued Medications Generic Name Dose Route Start Last Admin Trade Name Freq PRN Reason Stop Dose Admin Cephalexin 250 mg 09/04/20 15:46 Keflex PO 09/04/20 15:47 ONETIME ONE Departure - Departure Time of Disposition: 16:03 Disposition: Home, Self-Care 01 Preliminary Cause of *Q: Respiratory Failure Condition: Fair 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, Status post insertion of Ramos catheter UTI (urinary tract infection) due to urinary indwelling catheter Qualifiers: Indwelling urinary catheter type: indwelling urethral catheter Encounter type: initial encounter Qualified Code(s): T83.511A - Infection and inflammatory reaction due to indwelling urethral catheter, initial encounter - Discharge Information *PRESCRIPTION DRUG MONITORING PROGRAM REVIEWED*: No *COPY OF PRESCRIPTION DRUG MONITORING REPORT IN PATIENT YARELY: No Instructions: Indwelling Urinary Catheter Care, Adult, Urinary Tract Infection, Adult, [id number] Referrals: Aniket Gan MD [Primary Care Provider] - 3 Days (recommend urology evaluation, recheck of INR this week and pending urine culture review. ) Forms: ED Department Discharge Additional Instructions: Thank you for trusting us with your care today. please start the antibiotic as prescribed. you would benefit from seeing a urologist as previously referred by your primary MD, Dr. Gan. Please return if temperature is greater then 100.4, vomiting, severe pain, or ramos not draining. TAKE AN EXTRA DOSE OF COUMADIN TODAY YOUR INR IS LOW. CALL YOUR MD ON SUNDAY FOR FOLLOW UP THIS WEEK TO RECHECK YOUR INR AND FOLLOW THE RESULTS OF YOUR URINE CULTURE test pending: urine culture, 1st dose keflex po in ED today, and prescription provided for keflex for 7 days, orally. F/U: Dr. Gan, this week, PMD to follow urine culture and facilitate urology follow up Recheck INR this week, keflex may alter INR. Sepsis Event Note (ED) - Focused Exam Vital Signs: Vital Signs Temp Pulse Resp BP Pulse Ox 09/04/20 14:57 38.0 C 87 18 176/90 H 97 09/04/20 14:48 38.0 C 87 18 176/90 H 97 - My Orders Last 24 Hours: My Active Orders 09/04/20 15:12 CULTURE URINE [RM] Stat 09/04/20 15:35 Urinary Catheter Assessment [RC] ASDIRECTED 09/04/20 15:45 Ramos Catheter Insertion [Insert Urinary Catheter] [OM.PC] Q24H - Assessment/Plan Last 24 Hours: My Active Orders 09/04/20 15:12 CULTURE URINE [RM] Stat 09/04/20 15:35 Urinary Catheter Assessment [RC] ASDIRECTED 09/04/20 15:45 Ramos Catheter Insertion [Insert Urinary Catheter] [OM.PC] Q24H
[2020-09-04 14:50] VITALS: BP 176/90; PULSE 87
[2020-09-04] MEDS ORDERED: Cephalexin 250 MG Cap PO ONE (15:46)
== END 2020-09-04 16:24 | disposition home or self-care (01) ==
LOC: JP.ED 14:30
DX: T83.511A Infection and inflammatory reaction due to indwelling urethral catheter, initial encounter (principal); N39.0 Urinary tract infection, site not specified; N40.1 Benign prostatic hyperplasia with lower urinary tract symptoms; R33.8 Other retention of urine; Z86.718 Personal history of other venous thrombosis and embolism; Z79.01 Long term (current) use of anticoagulants; Z79.899 Other long term (current) drug therapy
CPT/HCPCS: 36415; 51702; 80048; 81001; 85025; 85610; 87086; 87088; 87186; 99283; A9270

== ENCOUNTER 2020-10-07 03:40 | Emergency (ER) | payer MEDICARE ==
[2020-10-07 04:12] VITALS: BP 185/101; PULSE 98
--- NOTE | 2020-10-07 04:22 | EDM.PDOC ---
ED HPI GENERAL MEDICAL PROBLEM - General Chief Complaint: Genitourinary Problem Stated Complaint: CATH ISSUES Time Seen by Provider: 10/07/20 04:03 Source of Information: Reports: Patient, Old Records History Limitations: Reports: No Limitations - History of Present Illness INITIAL COMMENTS - FREE TEXT/NARRATIVE: Mundo is a 70-year-old male presenting to the ED requesting placement of a Ramos catheter. Patient has a history of benign prostatic hypertrophy causing difficulty with passing his water. His first catheter was placed in June 2019. He has been to the ER numerous times as well as to the clinic for replacement of his Ramos catheter. He has refused to see urology [facility]. He took his Ramos catheter out tonight at around 11 PM because it "was not drheidi bradley" and has urinated 4 times since removing the catheter. Nursing did a bladder scan and he only has 75 cc in his bladder at this time. He denies any fever or chills, back pain, nausea or vomiting, diarrhea, shortness of breath or cough, saddle anesthesia or difficulty moving his bowels. He has chronic orchomegaly, but denies any pain. He was seen in the ED on 09/04/2020 where he had a catheter replaced and he was on a 7-day course of cephalexin for urinary tract infection at that time. He was seen in the [facility] clinic a week later where they again replaced the catheter which was his current catheter until he pulled it out this evening. The patient was never instructed on flushing the catheter. On last ER visit it was encouraged that he see the urology PA who does come to the [facility], however, the patient did not discuss this with Dr. Gan and therefore no referral has been placed. denies pain Pain Score (Numeric/FACES): 0 - Related Data Allergies Allergy/AdvReac Type Severity Reaction Status Date / Time No Known Allergies Allergy Verified 10/07/20 03:50 Home Meds: Home Meds Phenytoin [Dilantin] 30 mg PO DAILY 04/11/15 [History] Warfarin [Coumadin] 5 mg PO DAILY 04/11/15 [History] Phenytoin Sodium Extended [Dilantin] 500 mg PO DAILY 04/17/15 [History] Tamsulosin [Flomax] 0.4 mg PO DAILY #21 cap.er 06/23/19 [Rx] Past Medical History HEENT History: Reports: Impaired Vision Cardiovascular History: Reports: Blood Clots/VTE/DVT Genitourinary History: Reports: BPH, Prostate Disorder, Retention, Urinary, Other (See Below) Other Genitourinary History: 1st time urinary retention on 06/23/2019 Enlarged testicles. frequent ramos catheter placement Musculoskeletal History: Reports: Fracture, Other (See Below) Other Musculoskeletal History: right injury due to chain saw Neurological History: Reports: Seizure - Infectious Disease History Infectious Disease History: Reports: Chicken Pox - Past Surgical History Male Surgical History: Reports: None Musculoskeletal Surgical History: Reports: Other (See Below) Other Musculoskeletal Surgeries/Procedures:: right hand Social & Family History - Family History Family Medical History: No Pertinent Family History - Tobacco Use Tobacco Use Status *Q: Never Tobacco User - Caffeine Use Caffeine Use: Reports: None - Recreational Drug Use Recreational Drug Use: No ED ROS GENERAL - Review of Systems Review Of Systems: See Below Constitutional: Reports: No Symptoms HEENT: Reports: No Symptoms Respiratory: Reports: No Symptoms Cardiovascular: Reports: No Symptoms Endocrine: Reports: No Symptoms GI/Abdominal: Reports: No Symptoms : Reports: Other (History of chronic Ramos catheter due to prostatic hypertrophy. Patient pulled the catheter out earlier tonight and is concerned that he is going to develop urinary retention.) Musculoskeletal: Reports: No Symptoms Skin: Reports: No Symptoms Neurological: Reports: No Symptoms Psychiatric: Reports: No Symptoms Hematologic/Lymphatic: Reports: No Symptoms Immunologic: Reports: No Symptoms ED EXAM, RENAL/ - Physical Exam Exam: See Below Exam Limited By: No Limitations General Appearance: Alert, No Apparent Distress Head: Atraumatic, Normocephalic Neck: Normal Inspection, Supple Respiratory/Chest: No Respiratory Distress, Lungs Clear, Normal Breath Sounds Cardiovascular: Normal Peripheral Pulses, Regular Rate, Rhythm, No Murmur GI/Abdominal: Normal Bowel Sounds, Soft, Non-Tender, No Distention (Male) Exam: Urethral Discharge. No: Testicular Tenderness (L), Testicular Tenderness (R) Extremities: Normal Inspection Neurological: Alert, Oriented, Normal Cognition, No Motor/Sensory Deficits Psychiatric: Normal Affect Skin Exam: Warm, Dry Lymphatic: No Adenopathy Course - Vital Signs Last Recorded V/S: Last Vital Signs Temp 36.6 C 10/07/20 04:12 Pulse 98 10/07/20 04:12 Resp 16 10/07/20 04:12 BP 185/101 H 10/07/20 04:12 Pulse Ox 98 10/07/20 04:12 - Orders/Labs/Meds Orders: Active Orders 24 hr Category Date Time Status Insert Urinary Catheter [OM.PC] Q24H Care 10/07/20 05:00 Ordered Urinary Catheter Assessment [RC] ASDIRECTED Care 10/07/20 04:53 Ordered INR,PT,PROTHROMBIN TIME [COAG] Stat Lab 10/07/20 04:30 Received Lidocaine 2% [Xylocaine 2% Jelly] Med 10/07/20 04:52 Once 10 ml MUCMEM ONETIME ONE Labs: Laboratory Tests 10/07/20 10/07/20 Range/Units 04:21 04:30 WBC 7.4 (4.5-11.0) K/uL RBC 5.18 (4.30-5.90) M/uL Hgb 15.2 H (12.0-15.0) g/dL Hct 47.1 (40.0-54.0) % MCV 91 (80-98) fL MCH 29 (27-31) pg MCHC 32 (32-36) % Plt Count 235 (150-400) K/uL Neut % (Auto) 59 (36-66) % Lymph % (Auto) 28 (24-44) % [place] % (Auto) 10 H (2-6) % Eos % (Auto) 3 (2-4) % Baso % (Auto) 1 (0-1) % Urine Color Yellow (YELLOW) Urine Appearance Cloudy A (CLEAR) Urine pH 6.5 (5.0-8.0) Ur Specific [place] 1.025 (1.008-1.030) Urine Protein 100 H (NEGATIVE) mg/dL Urine Glucose (UA) Negative (NEGATIVE) mg/dL Urine Ketones Negative (NEGATIVE) mg/dL Urine Occult Blood Moderate H (NEGATIVE) Urine Nitrite Positive H (NEGATIVE) Urine Bilirubin Negative (NEGATIVE) Urine Urobilinogen 0.2 (0.2-1.0) EU/dL Ur Leukocyte Esterase Moderate H (NEGATIVE) Urine RBC Packed H (0-5) Urine WBC Packed H (0-5) Ur Epithelial Cells Rare Amorphous Sediment Not seen Urine Bacteria Many Urine Mucus Not seen - Re-Assessments/Exams Free Text/Narrative Re-Assessment/Exam: 10/07/20 04:53 I reviewed the patient's labs showing a normal CBC but is significant pyuria. This is likely due to chronic reinoculation from Ramos catheter. We will again put him on a course of cephalexin 500 mg 3 times daily for 7 days. I want the patient to follow-up with his primary care provider soon as possible for recheck and to establish care with a urologist as he will likely need to have a suprapubic catheter placed relatively soon. A new catheter was placed into the bladder. 10/07/20 04:54 the patient's INR is adequate at 2.06. Departure - Departure Time of Disposition: 05:10 Disposition: Home, Self-Care 01 Clinical Impression: Prostatic hypertrophy, Urinary retention, FPC (current) use of anticoagulants Ramos catheter problem Qualifiers: Encounter type: initial encounter Qualified Code(s): T83.9XXA - Unspecified complication of genitourinary prosthetic device, implant and graft, initial encounter UTI (urinary tract infection) due to urinary indwelling catheter Qualifiers: Indwelling urinary catheter type: indwelling urethral catheter Encounter type: initial encounter Qualified Code(s): T83.511A - Infection and inflammatory reaction due to indwelling urethral catheter, initial encounter - Discharge Information Instructions: Indwelling Urinary Catheter Care, Adult, Benign Prostatic Hyperplasia, Urinary Tract Infection, Adult, [id number] Referrals: PCP,None [Primary Care Provider] - Forms: ED Department Discharge Care Plan Goals: Follow-up as soon as possible with Dr. Gan to schedule a urology visit here at [facility]. Will likely need an evaluation for placement of a suprapubic catheter. Again, it appears that she have also developed a urinary tract infection due to the Ramos catheter. We will put you on cephalexin 500 mg three times a day for 7 days. Sepsis Event Note (ED) - Evaluation Sepsis Screening Result: No Definite Risk - Focused Exam Vital Signs: Vital Signs Temp Pulse Resp BP Pulse Ox 10/07/20 04:12 36.6 C 98 16 185/101 H 98 10/07/20 04:08 36.6 C 98 16 185/101 H 98 - Problem List & Annotations (1) Prostatic hypertrophy SNOMED Code(s): 838812545 Code(s): N40.0 - BENIGN PROSTATIC HYPERPLASIA WITHOUT LOWER URINRY TRACT SYMP Status: Chronic Priority: Medium Current Visit: Yes (2) Retention of urine SNOMED Code(s): 552582861 Code(s): R33.9 - RETENTION OF URINE, UNSPECIFIED Status: Chronic Priority: Medium Current Visit: No (3) UTI (urinary tract infection) due to urinary indwelling catheter SNOMED Code(s): 868479102 Code(s): T83.511A - I/I REACT D/T INDWELLING URETHRAL CATHETER, INIT; N39.0 - URINARY TRACT INFECTION, SITE NOT SPECIFIED Status: Acute Priority: Medium Current Visit: Yes Qualifiers: Indwelling urinary catheter type: indwelling urethral catheter Encounter type: initial encounter Qualified Code(s): T83.511A - Infection and inflammatory reaction due to indwelling urethral catheter, initial encounter; N39.0 - Urinary tract infection, site not specified (4) Ramos catheter problem SNOMED Code(s): 026433964 Code(s): T83.9XXA - UNSP COMPLICATION OF GENITOURINARY PROSTH DEV/GRFT, INIT Status: Acute Priority: Medium Current Visit: Yes Qualifiers: Encounter type: initial encounter Qualified Code(s): T83.9XXA - Unspecified complication of genitourinary prosthetic device, implant and graft, initial encounter - Problem List Review Problem List Initiated/Reviewed/Updated: Yes - My Orders Last 24 Hours: My Active Orders 10/07/20 04:30 INR,PT,PROTHROMBIN TIME [COAG] Stat 10/07/20 04:52 Lidocaine 2% [Xylocaine 2% Jelly] 10 ml MUCMEM ONETIME ONE 10/07/20 04:53 Urinary Catheter Assessment [RC] ASDIRECTED 10/07/20 05:00 Insert Urinary Catheter [OM.PC] Q24H - Assessment/Plan Last 24 Hours: My Active Orders 10/07/20 04:30 INR,PT,PROTHROMBIN TIME [COAG] Stat 10/07/20 04:52 Lidocaine 2% [Xylocaine 2% Jelly] 10 ml MUCMEM ONETIME ONE 10/07/20 04:53 Urinary Catheter Assessment [RC] ASDIRECTED 10/07/20 05:00 Insert Urinary Catheter [OM.PC] Q24H
[2020-10-07] MEDS ORDERED: Lidocaine 2% Jelly 10 ML Urojet MUCMEM ONE (04:52)
== END 2020-10-07 05:25 | disposition home or self-care (01) ==
LOC: JP.ED 03:40
DX: T83.511A Infection and inflammatory reaction due to indwelling urethral catheter, initial encounter (principal); N40.1 Benign prostatic hyperplasia with lower urinary tract symptoms; R33.8 Other retention of urine; Z79.01 Long term (current) use of anticoagulants; Z79.899 Other long term (current) drug therapy
CPT/HCPCS: 36415; 51702; 81001; 85025; 85610; 99283-25

== ENCOUNTER 2020-11-02 21:48 | Emergency (ER) | payer MEDICARE ==
[2020-11-02 22:03] VITALS: BP 177/84; PULSE 79
--- NOTE | 2020-11-02 22:16 | EDM.PDOC ---
ED HPI GENERAL MEDICAL PROBLEM - General Chief Complaint: Genitourinary Problem Stated Complaint: CATHETER ISSUES Time Seen by Provider: 11/02/20 22:12 Source of Information: Reports: Patient, RN Notes Reviewed History Limitations: Reports: No Limitations - History of Present Illness INITIAL COMMENTS - FREE TEXT/NARRATIVE: 70-year-old gentleman presents emergency department today with complaint of catheter dysfunction, he states his catheter became plugged this evening he did try to flush it without success he subsequently took it out. - Related Data Allergies Allergy/AdvReac Type Severity Reaction Status Date / Time No Known Allergies Allergy Verified 11/02/20 22:03 Home Meds: Home Meds Phenytoin [Dilantin] 30 mg PO DAILY 04/11/15 [History] Warfarin [Coumadin] 5 mg PO DAILY 04/11/15 [History] Phenytoin Sodium Extended [Dilantin] 500 mg PO DAILY 04/17/15 [History] Tamsulosin [Flomax] 0.4 mg PO DAILY #21 cap.er 06/23/19 [Rx] Past Medical History HEENT History: Reports: Impaired Vision Cardiovascular History: Reports: Blood Clots/VTE/DVT Genitourinary History: Reports: BPH, Prostate Disorder, Retention, Urinary, Other (See Below) Other Genitourinary History: 1st time urinary retention on 06/23/2019 Enlarged testicles. frequent ramos catheter placement Musculoskeletal History: Reports: Fracture, Other (See Below) Other Musculoskeletal History: right injury due to chain saw Neurological History: Reports: Seizure - Infectious Disease History Infectious Disease History: Reports: Chicken Pox - Past Surgical History Male Surgical History: Reports: None Musculoskeletal Surgical History: Reports: Other (See Below) Other Musculoskeletal Surgeries/Procedures:: right hand Social & Family History - Family History Family Medical History: No Pertinent Family History - Tobacco Use Tobacco Use Status *Q: Never Tobacco User - Caffeine Use Caffeine Use: Reports: None - Recreational Drug Use Recreational Drug Use: No ED ROS GENERAL - Review of Systems Review Of Systems: See Below Constitutional: Reports: No Symptoms Respiratory: Reports: No Symptoms Cardiovascular: Reports: No Symptoms GI/Abdominal: Reports: No Symptoms : Reports: Urinary Retention ED EXAM, RENAL/ - Physical Exam Exam: See Below Exam Limited By: No Limitations General Appearance: Alert, WD/WN, No Apparent Distress Respiratory/Chest: No Respiratory Distress Course - Vital Signs Last Recorded V/S: Last Vital Signs Temp 97.7 F 11/02/20 22:08 Pulse 79 11/02/20 22:08 Resp 16 11/02/20 22:08 BP 177/84 H 11/02/20 22:08 Pulse Ox 98 11/02/20 22:08 - Orders/Labs/Meds Orders: Active Orders 24 hr Category Date Time Status Bladder Scan [RC] ASDIRECTED Care 11/02/20 21:50 Active Ramos Catheter Insertion [Insert Urinary Catheter] [OM. Care 11/02/20 22:15 Ordered PC] Q24H Urinary Catheter Assessment [RC] ASDIRECTED Care 11/02/20 22:14 Active CULTURE URINE [RM] Urgent Lab 11/02/20 23:45 Received Labs: Laboratory Tests 11/02/20 Range/Units 22:56 Urine Color Yellow (YELLOW) Urine Appearance Slightly cloudy A (CLEAR) Urine pH 6.0 (5.0-8.0) Ur Specific [place] 1.025 (1.008-1.030) Urine Protein 30 H (NEGATIVE) mg/dL Urine Glucose (UA) Negative (NEGATIVE) mg/dL Urine Ketones Negative (NEGATIVE) mg/dL Urine Occult Blood Moderate H (NEGATIVE) Urine Nitrite Positive H (NEGATIVE) Urine Bilirubin Negative (NEGATIVE) Urine Urobilinogen 0.2 (0.2-1.0) EU/dL Ur Leukocyte Esterase Moderate H (NEGATIVE) Urine RBC 5-10 H (0-5) Urine WBC 50-75 H (0-5) Ur Epithelial Cells Few Amorphous Sediment Not seen Urine Bacteria Many Urine Mucus Not seen Departure - Departure Time of Disposition: 00:32 Disposition: Home, Self-Care 01 Condition: Fair Clinical Impression: Malfunction of Ramos catheter Qualifiers: Encounter type: initial encounter Qualified Code(s): T83.011A - Breakdown (mechanical) of indwelling urethral catheter, initial encounter UTI (urinary tract infection) Qualifiers: Urinary tract infection type: acute cystitis Hematuria presence: without hematuria Qualified Code(s): N30.00 - Acute cystitis without hematuria - Discharge Information Instructions: Clean Intermittent Catheterization, Male, Urinary Tract Infection, Adult Referrals: Aniket Gan MD [Primary Care Provider] - Forms: ED Department Discharge Additional Instructions: Take full course of antibiotics, please followup with your primary care provider in 3-5 days if not better, please call return to the emergency department with worsening of symptoms. Sepsis Event Note (ED) - Evaluation Sepsis Screening Result: No Definite Risk - Focused Exam Vital Signs: Vital Signs Temp Pulse Resp BP Pulse Ox 11/02/20 22:08 97.7 F 79 16 177/84 H 98 11/02/20 21:58 97.7 F 79 16 177/84 H 98 - My Orders Last 24 Hours: My Active Orders 11/02/20 21:50 Bladder Scan [RC] ASDIRECTED 11/02/20 22:14 Urinary Catheter Assessment [RC] ASDIRECTED 11/02/20 22:15 Ramos Catheter Insertion [Insert Urinary Catheter] [OM.PC] Q24H 11/02/20 23:45 CULTURE URINE [RM] Urgent - Assessment/Plan Last 24 Hours: My Active Orders 11/02/20 21:50 Bladder Scan [RC] ASDIRECTED 11/02/20 22:14 Urinary Catheter Assessment [RC] ASDIRECTED 11/02/20 22:15 Ramos Catheter Insertion [Insert Urinary Catheter] [OM.PC] Q24H 11/02/20 23:45 CULTURE URINE [RM] Urgent Plan: Assessment Acuity = acute Site and laterality = extreme with urinary tract infection Etiology = bacterial cause Manifestations = none Location of injury = Home Lab values = urinalysis 50-75 WBCs consistent with pyuria, positive nitrates cultures pending Plan He was treated with Keflex last month we will go and treat with Bactrim DS 1 tab p.o. twice daily x10 days follow-up with primary care in 3 to 5 days if not better This note was dictated using [employer] voice recognition software please call with any questions on syntax or grammar.
== END 2020-11-03 00:44 | disposition home or self-care (01) ==
LOC: JP.ED 21:48
DX: T83.018A Breakdown (mechanical) of other urinary catheter, initial encounter (principal); N30.00 Acute cystitis without hematuria; N40.0 Benign prostatic hyperplasia without lower urinary tract symptoms; R56.9 Unspecified convulsions; Z79.01 Long term (current) use of anticoagulants; Z79.899 Other long term (current) drug therapy
CPT/HCPCS: 51702; 81001; 87077; 87086; 87186; 99283

== ENCOUNTER 2020-12-11 15:37 | Emergency (ER) | payer MEDICARE ==
[2020-12-11 16:01] VITALS: BP 177/91; PULSE 79
--- NOTE | 2020-12-11 17:03 | EDM.PDOC ---
ED HPI GENERAL MEDICAL PROBLEM - General Chief Complaint: Genitourinary Problem Stated Complaint: BLADDER CATHETER Time Seen by Provider: 12/11/20 16:55 Source of Information: Reports: Patient, EMS Notes Reviewed, Old Records, RN Notes Reviewed History Limitations: Reports: No Limitations - History of Present Illness INITIAL COMMENTS - FREE TEXT/NARRATIVE: 70-year-old male who has indwelling catheter conically regularly comes in every month or 2 because it clogs up. Apparently this happened again today as the flow had slowed down. He took his catheter out before arrival and is here for replacement. He has no other complaints. No real pain is noted anywhere. He has 100 cc residual in his bladder Onset: Today - Related Data Allergies Allergy/AdvReac Type Severity Reaction Status Date / Time No Known Allergies Allergy Verified 12/11/20 16:11 Home Meds: Home Meds Phenytoin [Dilantin] 30 mg PO DAILY 04/11/15 [History] Warfarin [Coumadin] 5 mg PO DAILY 04/11/15 [History] Phenytoin Sodium Extended [Dilantin] 500 mg PO DAILY 04/17/15 [History] Tamsulosin [Flomax] 0.4 mg PO DAILY #21 cap.er 06/23/19 [Rx] Past Medical History HEENT History: Reports: Impaired Vision Cardiovascular History: Reports: Blood Clots/VTE/DVT Genitourinary History: Reports: BPH, Prostate Disorder, Retention, Urinary, Other (See Below) Other Genitourinary History: 1st time urinary retention on 06/23/2019 Enlarged testicles. frequent ramos catheter placement Musculoskeletal History: Reports: Fracture, Other (See Below) Other Musculoskeletal History: right injury due to chain saw Neurological History: Reports: Seizure - Infectious Disease History Infectious Disease History: Reports: Chicken Pox - Past Surgical History Male Surgical History: Reports: None Musculoskeletal Surgical History: Reports: Other (See Below) Other Musculoskeletal Surgeries/Procedures:: right hand Social & Family History - Family History Family Medical History: No Pertinent Family History - Tobacco Use Tobacco Use Status *Q: Never Tobacco User - Caffeine Use Caffeine Use: Reports: None - Recreational Drug Use Recreational Drug Use: No ED ROS GENERAL - Review of Systems Review Of Systems: Comprehensive ROS is negative, except as noted in HPI. ED EXAM, RENAL/ - Physical Exam Exam: See Below Text/Narrative:: Alert cooperative male with okay vital signs lying on the gurney in no real distress general exam is unremarkable. ENT hearing and vision appears to be okay Chest is clear with a regular rate and rhythm Dominance fairly large but not particularly tender nor full Genitalia appears normal externally Neurologic patient is observed walking and has no focal deficits Exam Limited By: No Limitations General Appearance: Alert, No Apparent Distress Course - Vital Signs Last Recorded V/S: Last Vital Signs Temp 36.6 C 12/11/20 16:18 Pulse 79 12/11/20 16:18 Resp 16 12/11/20 16:18 BP 177/91 H 12/11/20 16:18 Pulse Ox 96 12/11/20 16:18 Departure - Departure Time of Disposition: 17:15 Disposition: Home, Self-Care 01 Condition: Good Clinical Impression: Retention of urine, Status post insertion of Ramos catheter Ramos catheter problem Qualifiers: Encounter type: initial encounter Qualified Code(s): T83.9XXA - Unspecified complication of genitourinary prosthetic device, implant and graft, initial encounter - Discharge Information Instructions: Indwelling Urinary Catheter Care, Adult Referrals: PCP,None [Primary Care Provider] - Forms: ED Department Discharge Sepsis Event Note (ED) - Evaluation Sepsis Screening Result: No Definite Risk - Focused Exam Vital Signs: Vital Signs Temp Pulse Resp BP Pulse Ox 12/11/20 16:18 36.6 C 79 16 177/91 H 96 12/11/20 15:59 36.6 C 79 16 177/91 H 96
== END 2020-12-11 17:44 | disposition home or self-care (01) ==
LOC: JP.ED 15:37
DX: T83.098A Other mechanical complication of other urinary catheter, initial encounter (principal); N40.1 Benign prostatic hyperplasia with lower urinary tract symptoms; R33.8 Other retention of urine; R56.9 Unspecified convulsions; Z79.01 Long term (current) use of anticoagulants; Z79.899 Other long term (current) drug therapy
CPT/HCPCS: 51702; 99283-25

== ENCOUNTER 2021-02-07 09:15 | Emergency (ER) | payer MEDICARE ==
[2021-02-07 09:23] VITALS: BP 163/87; PULSE 76
== END 2021-02-07 10:05 | disposition left against medical advice (07) ==
LOC: JP.ED 09:15
DX: Z53.21 Procedure and treatment not carried out due to patient leaving prior to being seen by health care provider (principal)

== ENCOUNTER 2021-02-12 00:03 | Emergency (ER) | payer MEDICARE ==
[2021-02-12 00:31] VITALS: BP 155/86; PULSE 77
[2021-02-12] MEDS ORDERED: Cephalexin 250 MG Cap PO ONE (01:50)
--- NOTE | 2021-02-12 01:53 | EDM.PDOC ---
ED HPI GENERAL MEDICAL PROBLEM - General Chief Complaint: Genitourinary Problem Stated Complaint: CATH PROBLEMS Time Seen by Provider: 02/12/21 00:55 Source of Information: Reports: Patient History Limitations: Reports: No Limitations - History of Present Illness INITIAL COMMENTS - FREE TEXT/NARRATIVE: Mundo is a 70-year-old male presenting to the ED for evaluation of Ramos ca theter dysfunction. Patient extracted this Ramos catheter by himself at home because it was plugged. He has an indwelling Ramos catheter for urinary retention. He was able to void a small amount here prior to reinsertion of Ramos catheter. After the new Ramos catheter was placed, the urine was noted to be quite cloudy so I requested we send it off for urinalysis. Patient denies any fever or chills. He has had no overt symptoms. - Related Data Allergies Allergy/AdvReac Type Severity Reaction Status Date / Time No Known Allergies Allergy Verified 02/12/21 00:59 Home Meds: Home Meds Phenytoin [Dilantin] 30 mg PO DAILY 04/11/15 [History] Warfarin [Coumadin] 5 mg PO DAILY 04/11/15 [History] Phenytoin Sodium Extended [Dilantin] 500 mg PO DAILY 04/17/15 [History] Tamsulosin [Flomax] 0.4 mg PO DAILY #21 cap.er 06/23/19 [Rx] cephALEXin [Cephalexin] 250 mg PO BID 10 Days #19 capsule 02/12/21 [Rx] Past Medical History HEENT History: Reports: Impaired Vision Cardiovascular History: Reports: Blood Clots/VTE/DVT Genitourinary History: Reports: BPH, Prostate Disorder, Retention, Urinary, Other (See Below) Other Genitourinary History: 1st time urinary retention on 06/23/2019 Enlarged testicles. frequent ramos catheter placement Musculoskeletal History: Reports: Fracture, Other (See Below) Other Musculoskeletal History: right injury due to chain saw Neurological History: Reports: Seizure - Infectious Disease History Infectious Disease History: Reports: Chicken Pox - Past Surgical History Male Surgical History: Reports: None Musculoskeletal Surgical History: Reports: Other (See Below) Other Musculoskeletal Surgeries/Procedures:: right hand Social & Family History - Family History Family Medical History: No Pertinent Family History - Tobacco Use Tobacco Use Status *Q: Never Tobacco User - Caffeine Use Caffeine Use: Reports: Coffee - Recreational Drug Use Recreational Drug Use: No ED ROS GENERAL - Review of Systems Review Of Systems: See Below Constitutional: Reports: No Symptoms GI/Abdominal: Reports: No Symptoms : Reports: Urinary Retention (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 Care 02/12/21 01:00 Ordered PC] Q24H Urinary Catheter Assessment [RC] ASDIRECTED Care 02/12/21 00:57 Active CULTURE URINE [RM] Stat Lab 02/12/21 01:47 Ordered Labs: Laboratory Tests 02/12/21 Range/Units 01:01 Urine Color Yellow (YELLOW) Urine Appearance Cloudy A (CLEAR) Urine pH 5.5 (5.0-8.0) Ur Specific [place] 1.025 (1.008-1.030) Urine Protein 100 H (NEGATIVE) mg/dL Urine Glucose (UA) Negative (NEGATIVE) mg/dL Urine Ketones Negative (NEGATIVE) mg/dL Urine Occult Blood Large H (NEGATIVE) Urine Nitrite Negative (NEGATIVE) Urine Bilirubin Negative (NEGATIVE) Urine Urobilinogen 0.2 (0.2-1.0) EU/dL Ur Leukocyte Esterase Moderate H (NEGATIVE) Urine RBC 20-30 H (0-5) Urine WBC 50-75 H (0-5) Ur Epithelial Cells Few Amorphous Sediment Not seen Urine Bacteria Moderate Urine Mucus Not seen - Re-Assessments/Exams Free Text/Narrative Re-Assessment/Exam: 02/12/21 01:49 Ramos catheter was placed and is functioning properly now. Urinalysis was sent off showing significant pyuria with 30-50 WBCs and 10-20 RBCs. Patient has positive site esterase. I did order a urine culture. We will start patient on cephalexin 250 mg twice daily for 10 days for urinary tract infection with Ramos catheter. At this time he suitable for discharge home. Indications return to ED were discussed. The cephalexin was given in a printed prescription that the patient will have to fill in the morning. First dose was given in the ED. Departure - Departure Time of Disposition: 01:52 Disposition: Home, Self-Care 01 Clinical Impression: Encounter for Ramos catheter replacement, Complicated urinary tract infection - Discharge Information Instructions: Indwelling Urinary Catheter Care, Adult, Urinary Tract Infection, Adult, [id number] Referrals: Aniket Gan MD [Primary Care Provider] - Care Plan Goals: Your urinalysis shows that you have a significant infection in your urinary tract system. We are going to put you on cephalexin 1 capsule twice daily for the next 10 days to treat this. I did ask them to culture your urine and if you receive a phone call in the next 2 to 3 days to change the antibiotic it is because the bacteria that is growing in your urine is resistant to the one that I am prescribing. If you do not hear from us in the next 2 to 3 days it is because the antibiotic you are on will treat the infection. Please care for the Ramos catheter as before. Feel free to contact us if you have any questions. Sepsis Event Note (ED) - Evaluation Sepsis Screening Result: No Definite Risk - Focused Exam Vital Signs: Vital Signs Temp Pulse Resp BP Pulse Ox 02/12/21 01:12 36.2 C 77 16 155/86 H 97 02/12/21 00:28 36.2 C 77 16 155/86 H 97 - Problem List & Annotations (1) UTI (urinary tract infection) due to urinary indwelling catheter SNOMED Code(s): 463726162 Code(s): T83.511A - I/I REACT D/T INDWELLING URETHRAL CATHETER, INIT; N39.0 - URINARY TRACT INFECTION, SITE NOT SPECIFIED Status: Acute Priority: Medium Current Visit: No Qualifiers: Indwelling urinary catheter type: indwelling urethral catheter Encounter type: initial encounter Qualified Code(s): T83.511A - Infection and inflammatory reaction due to indwelling urethral catheter, initial encounter; N39.0 - Urinary tract infection, site not specified (2) Ramos catheter problem SNOMED Code(s): 790103020 Code(s): T83.9XXA - UNSP COMPLICATION OF GENITOURINARY PROSTH DEV/GRFT, INIT Status: Acute Priority: Medium Current Visit: No Qualifiers: Encounter type: initial encounter Qualified Code(s): T83.9XXA - Unspecified complication of genitourinary prosthetic device, implant and graft, initial encounter - Problem List Review Problem List Initiated/Reviewed/Updated: Yes - My Orders Last 24 Hours: My Active Orders 02/12/21 00:57 Urinary Catheter Assessment [RC] ASDIRECTED 02/12/21 01:00 Ramos Catheter Insertion [Insert Urinary Catheter] [OM.PC] Q24H 02/12/21 01:47 CULTURE URINE [RM] Stat - Assessment/Plan Last 24 Hours: My Active Orders 02/12/21 00:57 Urinary Catheter Assessment [RC] ASDIRECTED 02/12/21 01:00 Ramos Catheter Insertion [Insert Urinary Catheter] [OM.PC] Q24H 02/12/21 01:47 CULTURE URINE [RM] Stat
== END 2021-02-12 02:04 | disposition home or self-care (01) ==
LOC: JP.ED 00:03
DX: N39.0 Urinary tract infection, site not specified (principal); N40.1 Benign prostatic hyperplasia with lower urinary tract symptoms; R33.8 Other retention of urine; Z86.718 Personal history of other venous thrombosis and embolism; Z46.6 Encounter for fitting and adjustment of urinary device; Z79.01 Long term (current) use of anticoagulants; Z79.899 Other long term (current) drug therapy
CPT/HCPCS: 51702; 81001; 87086; 87088; 87186; 99283; A9270

== ENCOUNTER 2021-04-25 23:33 | Emergency (ER) | payer MEDICARE ==
[2021-04-26 00:23] VITALS: BP 187/102; PULSE 76
--- NOTE | 2021-04-26 01:18 | EDM.PDOC ---
ED HPI GENERAL MEDICAL PROBLEM - General Chief Complaint: Genitourinary Problem Stated Complaint: CATH ISSUES Time Seen by Provider: 04/26/21 00:30 Source of Information: Reports: Patient History Limitations: Reports: No Limitations - History of Present Illness INITIAL COMMENTS - FREE TEXT/NARRATIVE: 70-year-old male who has had a chronic indwelling catheter for the last 2 years, had an attempted catheter change at the clinic today which sounds like it was somewhat traumatic. There was some bleeding after the procedure, and they elected to try to have him go without an indwelling catheter. He is not tolerating this, dribbling continuously, feels very uncomfortable and wants the catheter replaced. He is no longer bleeding. He does not feel distended and is not having significant bladder or abdominal pain. Onset: Unknown/Unsure Duration: Chronic Associated Symptoms: Reports: Other (Urinary incontinence with urgency). Denies: Fever/Chills, Loss of Appetite, Malaise, Nausea/Vomiting, Shortness of Breath - Related Data Allergies Allergy/AdvReac Type Severity Reaction Status Date / Time No Known Allergies Allergy Verified 04/26/21 00:18 Home Meds: Home Meds Phenytoin [Dilantin] 30 mg PO DAILY 04/11/15 [History] Warfarin [Coumadin] 5 mg PO DAILY 04/11/15 [History] Phenytoin Sodium Extended [Dilantin] 500 mg PO DAILY 04/17/15 [History] Tamsulosin [Flomax] 0.4 mg PO DAILY #21 cap.er 06/23/19 [Rx] Past Medical History HEENT History: Reports: Impaired Vision Cardiovascular History: Reports: Blood Clots/VTE/DVT Genitourinary History: Reports: BPH, Prostate Disorder, Retention, Urinary, Other (See Below) Other Genitourinary History: 1st time urinary retention on 06/23/2019 Enlarged testicles. frequent ramos catheter placement Musculoskeletal History: Reports: Fracture, Other (See Below) Other Musculoskeletal History: right injury due to chain saw Neurological History: Reports: Seizure - Infectious Disease History Infectious Disease History: Reports: Chicken Pox - Past Surgical History Male Surgical History: Reports: None Musculoskeletal Surgical History: Reports: Other (See Below) Other Musculoskeletal Surgeries/Procedures:: right hand Social & Family History - Family History Family Medical History: No Pertinent Family History - Tobacco Use Tobacco Use Status *Q: Never Tobacco User - Caffeine Use Caffeine Use: Reports: Coffee - Recreational Drug Use Recreational Drug Use: No ED ROS GENERAL - Review of Systems Review Of Systems: See Below Constitutional: Denies: Fever, Chills, Malaise HEENT: Reports: No Symptoms (Hard of hearing) Respiratory: Denies: Shortness of Breath Cardiovascular: Denies: Chest Pain GI/Abdominal: Denies: Abdominal Pain, Nausea, Vomiting : Reports: Frequency, Hematuria, Incontinence, Urgency Skin: Reports: No Symptoms Neurological: Denies: Headache ED EXAM, RENAL/ - Physical Exam Exam: See Below Text/Narrative:: Bladder scan was done which showed a bladder volume of 150 to 200 cc Exam Limited By: No Limitations General Appearance: Alert, No Apparent Distress Respiratory/Chest: No Respiratory Distress, Lungs Clear Cardiovascular: Regular Rate, Rhythm GI/Abdominal: Soft, Non-Tender, No Distention Neurological: Alert, Oriented Psychiatric: Anxious Skin Exam: Warm, Dry Course - Vital Signs Last Recorded V/S: Last Vital Signs Temp 98.1 F 04/26/21 00:19 Pulse 76 04/26/21 00:19 Resp 18 04/26/21 00:19 BP 187/102 H 04/26/21 00:19 Pulse Ox 97 04/26/21 00:19 - Orders/Labs/Meds Orders: Active Orders 24 hr Category Date Time Status Insert Urinary Catheter [OM.PC] Q24H Care 04/26/21 00:45 Ordered Labs: Laboratory Tests 04/26/21 Range/Units 00:53 Urine Color Yellow (YELLOW) Urine Appearance Clear (CLEAR) Urine pH 6.0 (5.0-8.0) Ur Specific [place] 1.015 (1.008-1.030) Urine Protein Negative (NEGATIVE) mg/dL Urine Glucose (UA) Negative (NEGATIVE) mg/dL Urine Ketones Negative (NEGATIVE) mg/dL Urine Occult Blood Large H (NEGATIVE) Urine Nitrite Negative (NEGATIVE) Urine Bilirubin Negative (NEGATIVE) Urine Urobilinogen 0.2 (0.2-1.0) EU/dL Ur Leukocyte Esterase Small H (NEGATIVE) Urine RBC 0-5 (0-5) Urine WBC 5-10 H (0-5) Ur Epithelial Cells Few Amorphous Sediment Not seen Urine Bacteria Few Urine Mucus Not seen - Re-Assessments/Exams Free Text/Narrative Re-Assessment/Exam: 04/26/21 01:17 Tried to convince the patient that he does not need an indwelling catheter, and it would be worthwhile to give this 1 or 2 more days then discuss how he is doing with the urologist. He became somewhat agitated and insisted he needs the catheter, he also insisted he needed a UA checked because he might have an infection and they did not check a UA at the clinic. A Ramos was reinserted, and a UA obtained and is pending. 04/26/21 01:20 UA showed just a few RBCs but no infection, patient was much more comfortable with the catheter in place. He can follow-up with his primary providers later this week. Departure - Departure Time of Disposition: 01:20 Disposition: Home, Self-Care 01 Clinical Impression: Dysuria Urinary incontinence Qualifiers: Urinary Incontinence type: functional incontinence Qualified Code(s): R39.81 - Functional urinary incontinence - Discharge Information Instructions: Indwelling Urinary Catheter Care, Adult Referrals: PCP,None [Primary Care Provider] - Forms: ED Department Discharge Care Plan Goals: Call your regular doctors later this week to discuss ongoing catheter use. Sepsis Event Note (ED) - Evaluation Sepsis Screening Result: No Definite Risk - Focused Exam Vital Signs: Vital Signs Temp Pulse Resp BP Pulse Ox 04/26/21 00:19 98.1 F 76 18 187/102 H 97 - My Orders Last 24 Hours: My Active Orders 04/26/21 00:45 Insert Urinary Catheter [OM.PC] Q24H - Assessment/Plan Last 24 Hours: My Active Orders 04/26/21 00:45 Insert Urinary Catheter [OM.PC] Q24H
== END 2021-04-26 01:25 | disposition home or self-care (01) ==
LOC: JP.ED 23:33
DX: R30.0 Dysuria (principal); R39.81 Functional urinary incontinence; N40.0 Benign prostatic hyperplasia without lower urinary tract symptoms; Z86.718 Personal history of other venous thrombosis and embolism; Z79.01 Long term (current) use of anticoagulants; Z79.899 Other long term (current) drug therapy
CPT/HCPCS: 51702; 81001; 99284-25

== ENCOUNTER 2021-06-07 20:52 | Emergency (ER) | payer MEDICARE ==
[2021-06-07] MEDS ORDERED: Lidocaine 2% Jelly 10 ML Urojet MUCMEM ONE (21:02)
[2021-06-07 21:16] VITALS: BP 156/75; PULSE 75
[2021-06-07] MEDS ORDERED: Cephalexin 250 MG Cap PO ONE ×2 (22:03→22:08)
--- NOTE | 2021-06-07 22:11 | EDM.PDOC ---
ED HPI GENERAL MEDICAL PROBLEM - General Chief Complaint: Genitourinary Problem Stated Complaint: CLOGGED CATHETER Time Seen by Provider: 06/07/21 21:45 Source of Information: Reports: Patient, Old Records, RN History Limitations: Reports: No Limitations - History of Present Illness INITIAL COMMENTS - FREE TEXT/NARRATIVE: 70 yo male with an indwelling ramos catheter presents with plugging of his catheter. He has no fever or flank pain. His catheter's plug quite often. 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 (see below) (none) - Related Data Allergies Allergy/AdvReac Type Severity Reaction Status Date / Time No Known Allergies Allergy Verified 06/07/21 21:17 Home Meds: Home Meds Phenytoin [Dilantin] 30 mg PO DAILY 04/11/15 [History] Warfarin [Coumadin] 5 mg PO DAILY 04/11/15 [History] Phenytoin Sodium Extended [Dilantin] 500 mg PO DAILY 04/17/15 [History] Tamsulosin [Flomax] 0.4 mg PO DAILY #21 cap.er 06/23/19 [Rx] cephALEXin [Cephalexin] 500 mg PO Q8H #20 capsule 06/07/21 [Rx] Past Medical History HEENT History: Reports: Impaired Vision Cardiovascular History: Reports: Blood Clots/VTE/DVT Genitourinary History: Reports: BPH, Prostate Disorder, Retention, Urinary, Other (See Below) Other Genitourinary History: 1st time urinary retention on 06/23/2019 Enlarged testicles. frequent ramos catheter placement Musculoskeletal History: Reports: Fracture, Other (See Below) Other Musculoskeletal History: right injury due to chain saw Neurological History: Reports: Seizure - Infectious Disease History Infectious Disease History: Reports: Chicken Pox - Past Surgical History Male Surgical History: Reports: None Musculoskeletal Surgical History: Reports: Other (See Below) Other Musculoskeletal Surgeries/Procedures:: right hand Social & Family History - Family History Family Medical History: No Pertinent Family History - Tobacco Use Tobacco Use Status *Q: Never Tobacco User - Caffeine Use Caffeine Use: Reports: Coffee - Recreational Drug Use Recreational Drug Use: No ED ROS GENERAL - Review of Systems Review Of Systems: See Below Constitutional: Denies: Fever, Chills HEENT: Reports: No Symptoms Respiratory: Reports: No Symptoms Cardiovascular: Reports: No Symptoms GI/Abdominal: Reports: No Symptoms : Reports: Other (dark urine) Musculoskeletal: Reports: No Symptoms Skin: Reports: No Symptoms Neurological: Reports: No Symptoms ED EXAM, RENAL/ - Physical Exam Exam: See Below Exam Limited By: No Limitations General Appearance: Alert, WD/WN, No Apparent Distress GI/Abdominal: Non-Tender. No: Distended, Tender Extremities: Normal Inspection Neurological: Alert, Oriented, CN II-XII Intact, Normal Cognition, No Motor/Sensory Deficits Psychiatric: Normal Affect, Normal Mood Skin Exam: Warm, Dry, Intact, Normal Color, No Rash Course - Vital Signs Last Recorded V/S: Last Vital Signs Temp 36.7 C 06/07/21 21:15 Pulse 75 06/07/21 21:15 Resp 16 06/07/21 21:15 BP 156/75 H 06/07/21 21:15 Pulse Ox 96 06/07/21 21:15 - Orders/Labs/Meds Orders: Active Orders 24 hr Category Date Time Status Ramos Catheter Insertion [Insert Urinary Catheter] [OM. Care 06/07/21 21:15 Ordered PC] Q24H Urinary Catheter Assessment [RC] ASDIRECTED Care 06/07/21 21:03 Active CULTURE URINE [RM] Stat Lab 06/07/21 22:01 Ordered Labs: Laboratory Tests 06/07/21 Range/Units 21:18 Urine Color Yellow (YELLOW) Urine Appearance Cloudy A (CLEAR) Urine pH 6.0 (5.0-8.0) Ur Specific Friend >= 1.030 (1.008-1.030) Urine Protein 30 H (NEGATIVE) mg/dL Urine Glucose (UA) Negative (NEGATIVE) mg/dL Urine Ketones Negative (NEGATIVE) mg/dL Urine Occult Blood Moderate H (NEGATIVE) Urine Nitrite Positive H (NEGATIVE) Urine Bilirubin Negative (NEGATIVE) Urine Urobilinogen 0.2 (0.2-1.0) EU/dL Ur Leukocyte Esterase Small H (NEGATIVE) Urine RBC Semi-packed H (0-5) Urine WBC Semi-packed H (0-5) Ur Epithelial Cells Not seen Amorphous Sediment Few Urine Bacteria Moderate Urine Mucus Few Meds: Medications Discontinued Medications Generic Name Dose Route Start Last Admin Trade Name Filiberto PRN Reason Stop Dose Admin Cephalexin 50 mg 06/07/21 22:03 Cephalexin 250 Mg Cap PO 06/07/21 22:04 ONETIME ONE Lidocaine HCl 10 ml 06/07/21 21:02 06/07/21 21:30 Lidocaine 2% Jelly 10 Ml Urojet MUCMEM 06/07/21 21:03 10 ml ONETIME ONE Administration Departure - Departure Time of Disposition: 22:12 Disposition: Home, Self-Care 01 Condition: Good Clinical Impression: Obstructed Ramos catheter Qualifiers: Encounter type: initial encounter Qualified Code(s): T83.091A - Other mechanical complication of indwelling urethral catheter, initial encounter UTI (urinary tract infection) Qualifiers: Urinary tract infection type: acute cystitis Hematuria presence: without hematuria Qualified Code(s): N30.00 - Acute cystitis without hematuria - Discharge Information *PRESCRIPTION DRUG MONITORING PROGRAM REVIEWED*: Not Applicable *COPY OF PRESCRIPTION DRUG MONITORING REPORT IN PATIENT YARELY: Not Applicable Prescriptions: cephALEXin [Cephalexin] 500 mg PO Q8H #20 capsule Instructions: Urinary Tract Infection, Adult, [id number] Referrals: Jade Russo PA-C [Primary Care Provider] - Additional Instructions: Drink enough fluids so that your urine is very light yellow. Get your Rx at [facility] as soon as they open tomorrow and take the cephalexin every 8 hrs. Check with your provider Sunday to see if you are on the right antibiotic as your urine culture will be available by then. Return for fever. Sepsis Event Note (ED) - Evaluation Sepsis Screening Result: No Definite Risk - Focused Exam Vital Signs: Vital Signs Temp Pulse Resp BP Pulse Ox 06/07/21 21:15 36.7 C 75 16 156/75 H 96 - My Orders Last 24 Hours: My Active Orders 06/07/21 21:03 Urinary Catheter Assessment [RC] ASDIRECTED 06/07/21 21:15 Ramos Catheter Insertion [Insert Urinary Catheter] [OM.PC] Q24H 06/07/21 22:01 CULTURE URINE [RM] Stat - Assessment/Plan Last 24 Hours: My Active Orders 06/07/21 21:03 Urinary Catheter Assessment [RC] ASDIRECTED 06/07/21 21:15 Ramos Catheter Insertion [Insert Urinary Catheter] [OM.PC] Q24H 06/07/21 22:01 CULTURE URINE [] Stat
== END 2021-06-07 22:20 | disposition home or self-care (01) ==
LOC: JP.ED 20:52
DX: T83.091A Other mechanical complication of indwelling urethral catheter, initial encounter (principal); N39.0 Urinary tract infection, site not specified; Z79.899 Other long term (current) drug therapy
CPT/HCPCS: 81001; 87086; 99283; A9270; 87088; 87186

== ENCOUNTER 2025-01-25 17:29 | Inpatient (IN) | payer MEDICARE ==
[2025-01-25] MEDS ORDERED: Sodium Chloride 0.9% 10 ML Syringe FLUSH PRN (17:32)
[2025-01-25 18:15] LABS: BASOPHILS ABSOLUTE AUTO 0.05 K/uL (0.00-0.10); BASOPHILS PERCENT AUTO 0.6 % (0.1-1.3); EOSINOPHILS PERCENT AUTO 0.0 % (0.0-5.4); IMMATURE GRAN ABSOLUTE AUTO 0.09 K/uL (0.00-0.23); IMMATURE GRAN PERCENT AUTO 1.0 % (0.0-0.7); LYMPHOCYTES ABSOLUTE AUTO 1.53 K/uL (0.8-3.3); LYMPHOCYTES PERCENT AUTO 16.9 % (11.4-47.7); MONOCYTES ABSOLUTE AUTO 0.85 K/uL (0.20-0.90); MONOCYTES PERCENT AUTO 9.4 % (3.3-12.6); NEUTROPHILS ABSOLUTE AUTO 6.54 K/uL (1.0-7.6); NEUTROPHILS PERCENT AUTO 72.1 % (40.0-78.1); PLATELET COUNT,PLT 149 K/uL (130-375); RED BLOOD CELL COUNT 5.74 M/uL (4.14-5.76); WHITE BLOOD CELL COUNT,WBC 9.1 K/uL (3.2-11.0)
[2025-01-25 18:17] LABS: EOSINOPHILS ABSOLUTE AUTO 0.00 K/uL (0.00-0.40)
[2025-01-25 18:25] LABS: APPEARANCE,URINE CLOUDY (CLEAR); GLUCOSE,URINE NEGATIVE (NEGATIVE); OCCULT BLOOD,URINE LARGE (NEGATIVE)
[2025-01-25 18:34] LABS: EPITHELIAL CELLS,URINE RARE
[2025-01-25 18:36] LABS: AMPHETAMINES SCREEN, URINE NEGATIVE (NEGATIVE); METHADONE SCREEN, URINE NEGATIVE (NEGATIVE); METHAMPHETAMINES SCREEN, URINE NEGATIVE (NEGATIVE); OXYCODONE SCREEN,URINE NEGATIVE (NEGATIVE); PROPOXYPHENE SCREEN,URINE NEGATIVE (NEGATIVE); THC SCREEN,URINE 50 NG/ML NEGATIVE (NEGATIVE)
[2025-01-25 18:36] LABS: INR 4.0
[2025-01-25 18:43] LABS: LACTIC ACID 3.0 mmol/L (0.4-2.0)
[2025-01-25 18:52] LABS: BASE EXCESS ARTERIAL -12.3 mm/L; BICARBONATE,ARTERIAL 11.9 mmol/L (22.0-26.0); O2 SATURATION ARTERIAL 94.8 % (95.0-98.0); OXYHEMOGLOBIN 92.7 %; PCO2 ARTERIAL 24.1 mmHg (35.0-42.0); PO2 ARTERIAL 80.7 mmHg (75.0-100.0); TOTAL HEMOGLOBIN 17.1 g/dL (13.5-18.0)
[2025-01-25 18:52] LABS: A/G RATIO 0.6 (1.2-2.2); ALANINE AMINOTRANSFERASE,ALT 75 U/L (12-78); ASPARTATE AMNIOTRANSFERASE,AST 124 U/L (15-37); BILIRUBIN TOTAL 1.2 mg/dL (0.2-1.0); CHLORIDE,CL 99 mmol/L (100-108); EST CRCL DRUG DOSING (CG) 9.20 mL/min; ESTIMATED GFR 8 mL/min (>60); GLUCOSE RANDOM 219 mg/dL (74-106); POTASSIUM,K 5.0 mmol/L (3.6-5.2); PROTEIN TOTAL,TP 6.9 g/dL (6.4-8.2); SODIUM,NA 133 mmol/L (140-148)
[2025-01-25 18:57] LABS: CREATINE KINASE,CK 5610 U/L (39-308)
[2025-01-25 18:58] LABS: BLOOD UREA NITROGEN,BUN 87 mg/dL (7-18); CARBON DIOXIDE,CO2 14 mmol/L (21-32); CREATININE 7.0 mg/dL (0.8-1.3)
[2025-01-25] MEDS ORDERED: Albuterol 0.083% 2.5 MG/3 ML Neb Soln NEB PRN (20:33)
[2025-01-25] MEDS ORDERED: Ondansetron 4 MG/2 ML SDV IV PRN (20:33)
[2025-01-25] MEDS ORDERED: Ondansetron 4 MG Tab.DIS PO PRN (20:33)
[2025-01-26 05:57] LABS: BASOPHILS ABSOLUTE AUTO 0.03 K/uL (0.00-0.10); BASOPHILS PERCENT AUTO 0.4 % (0.1-1.3); EOSINOPHILS PERCENT AUTO 0.0 % (0.0-5.4); IMMATURE GRAN ABSOLUTE AUTO 0.09 K/uL (0.00-0.23); IMMATURE GRAN PERCENT AUTO 1.3 % (0.0-0.7); LYMPHOCYTES ABSOLUTE AUTO 1.40 K/uL (0.8-3.3); LYMPHOCYTES PERCENT AUTO 20.0 % (11.4-47.7); MONOCYTES ABSOLUTE AUTO 0.59 K/uL (0.20-0.90); MONOCYTES PERCENT AUTO 8.4 % (3.3-12.6); NEUTROPHILS ABSOLUTE AUTO 4.88 K/uL (1.0-7.6); NEUTROPHILS PERCENT AUTO 69.9 % (40.0-78.1); PLATELET COUNT,PLT 115 K/uL (130-375); RED BLOOD CELL COUNT 5.13 M/uL (4.14-5.76); WHITE BLOOD CELL COUNT,WBC 7.0 K/uL (3.2-11.0)
[2025-01-26 05:58] LABS: EOSINOPHILS ABSOLUTE AUTO 0.00 K/uL (0.00-0.40)
[2025-01-26 06:17] LABS: INR 4.9
[2025-01-26 06:32] LABS: A/G RATIO 0.5 (1.2-2.2); ALANINE AMINOTRANSFERASE,ALT 61 U/L (12-78); ASPARTATE AMNIOTRANSFERASE,AST 92 U/L (15-37); BILIRUBIN TOTAL 0.7 mg/dL (0.2-1.0); CARBON DIOXIDE,CO2 16 mmol/L (21-32); CHLORIDE,CL 104 mmol/L (100-108); EST CRCL DRUG DOSING (CG) 9.69 mL/min; ESTIMATED GFR 8 mL/min (>60); GLUCOSE RANDOM 166 mg/dL (74-106); POTASSIUM,K 4.6 mmol/L (3.6-5.2); PROTEIN TOTAL,TP 6.0 g/dL (6.4-8.2); SODIUM,NA 136 mmol/L (140-148)
[2025-01-26 06:34] LABS: BLOOD UREA NITROGEN,BUN 95 mg/dL (7-18); CREATINE KINASE,CK 3466 U/L (39-308); CREATININE 6.8 mg/dL (0.8-1.3)
[2025-01-26] MEDS: Phenytoin 100 MG Cap.ER PO SCH (08:53)
[2025-01-26] MEDS: PHENYTOIN 30 MG PO SCH (16:08)
[2025-01-26 17:26] LABS: CHLORIDE,CL 102.0 mmol/L (100-108); EST CRCL DRUG DOSING (CG) 10.63 mL/min; ESTIMATED GFR 9.0 mL/min (>60); GLUCOSE RANDOM 209.0 mg/dL (74-106); POTASSIUM,K 4.1 mmol/L (3.6-5.2); SODIUM,NA 131.0 mmol/L (140-148)
[2025-01-26 17:28] LABS: BLOOD UREA NITROGEN,BUN 100.0 mg/dL (7-18); CARBON DIOXIDE,CO2 14.0 mmol/L (21-32); CREATINE KINASE,CK 2648.0 U/L (39-308); CREATININE 6.2 mg/dL (0.8-1.3)
[2025-01-27 05:55] LABS: BASOPHILS PERCENT AUTO 0.2 % (0.1-1.3); EOSINOPHILS ABSOLUTE AUTO 0.04 K/uL (0.00-0.40); EOSINOPHILS PERCENT AUTO 0.7 % (0.0-5.4); IMMATURE GRAN ABSOLUTE AUTO 0.04 K/uL (0.00-0.23); IMMATURE GRAN PERCENT AUTO 0.7 % (0.0-0.7); LYMPHOCYTES ABSOLUTE AUTO 0.62 K/uL (0.8-3.3); LYMPHOCYTES PERCENT AUTO 11.3 % (11.4-47.7); MONOCYTES ABSOLUTE AUTO 0.30 K/uL (0.20-0.90); MONOCYTES PERCENT AUTO 5.5 % (3.3-12.6); NEUTROPHILS ABSOLUTE AUTO 4.47 K/uL (1.0-7.6); NEUTROPHILS PERCENT AUTO 81.6 % (40.0-78.1); PLATELET COUNT,PLT 99 K/uL (130-375); RED BLOOD CELL COUNT 4.28 M/uL (4.14-5.76); WHITE BLOOD CELL COUNT,WBC 5.5 K/uL (3.2-11.0)
[2025-01-27 06:05] LABS: BASOPHILS ABSOLUTE AUTO 0.01 K/uL (0.00-0.10)
[2025-01-27 06:06] LABS: INR 1.2
[2025-01-27 06:18] LABS: A/G RATIO 0.5 (1.2-2.2); ALANINE AMINOTRANSFERASE,ALT 59 U/L (12-78); ASPARTATE AMNIOTRANSFERASE,AST 99 U/L (15-37); BILIRUBIN TOTAL 0.6 mg/dL (0.2-1.0); CHLORIDE,CL 104 mmol/L (100-108); EST CRCL DRUG DOSING (CG) 11.77 mL/min; ESTIMATED GFR 10 mL/min (>60); GLUCOSE RANDOM 125 mg/dL (74-106); POTASSIUM,K 3.8 mmol/L (3.6-5.2); PROTEIN TOTAL,TP 5.5 g/dL (6.4-8.2); SODIUM,NA 133 mmol/L (140-148)
[2025-01-27 06:21] LABS: BLOOD UREA NITROGEN,BUN 100 mg/dL (7-18); CARBON DIOXIDE,CO2 15 mmol/L (21-32); CREATINE KINASE,CK 2658 U/L (39-308); CREATININE 5.6 mg/dL (0.8-1.3)
[2025-01-28 06:10] LABS: INR 1.3
[2025-01-28 06:24] LABS: CARBON DIOXIDE,CO2 16.0 mmol/L (21-32); CHLORIDE,CL 103.0 mmol/L (100-108); EST CRCL DRUG DOSING (CG) 16.07 mL/min; ESTIMATED GFR 14.0 mL/min (>60); GLUCOSE RANDOM 175.0 mg/dL (74-106); POTASSIUM,K 3.4 mmol/L (3.6-5.2); SODIUM,NA 132.0 mmol/L (140-148); VANCOMYCIN RANDOM 15.6 ug/mL (0.0-50.0)
[2025-01-28 06:25] LABS: BLOOD UREA NITROGEN,BUN 98.0 mg/dL (7-18)
[2025-01-28 06:26] LABS: CREATININE 4.1 mg/dL (0.8-1.3)
[2025-01-28 09:22] LABS: B. BURGDORFERI IGG IMMUNOBLOT Positive (Negative); B. BURGDORFERI IGM IMMUNOBLOT Negative (Negative)
[2025-01-28] MEDS: Potassium Chloride 20 MEQ Tab.ER PO ONE (09:31)
[2025-01-28] MEDS ORDERED: Atropine/Diphenoxylate 0.025-2.5 MG Tab PO PRN (12:31)
[2025-01-28 19:24] LABS: ANAPLASMA PHAGOCYTOPHILUM PCR Detected; BABESIA MICROTI BY PCR Not Detected; EHRLICHIA CHAFFEENSIS BY PCR Not Detected; EHRLICHIA EWINGII/CANIS BY PCR Not Detected; EHRLICHIA MURIS-LIKE BY PCR Not Detected
[2025-01-29 06:23] LABS: INR 2.3
[2025-01-29 06:27] LABS: CARBON DIOXIDE,CO2 17.0 mmol/L (21-32); CHLORIDE,CL 104.0 mmol/L (100-108); CREATININE 3.1 mg/dL (0.8-1.3); EST CRCL DRUG DOSING (CG) 21.26 mL/min; ESTIMATED GFR 20.0 mL/min (>60); GLUCOSE RANDOM 175.0 mg/dL (74-106); POTASSIUM,K 3.5 mmol/L (3.6-5.2); SODIUM,NA 133.0 mmol/L (140-148)
[2025-01-29 06:32] LABS: BLOOD UREA NITROGEN,BUN 93.0 mg/dL (7-18)
[2025-01-29] MEDS: Potassium Chloride 20 MEQ Tab.ER PO ONE ×2 (08:18→17:03)
[2025-01-30 06:06] LABS: INR 2.8
[2025-01-30 06:12] LABS: CARBON DIOXIDE,CO2 17.0 mmol/L (21-32); CHLORIDE,CL 105.0 mmol/L (100-108); CREATININE 2.5 mg/dL (0.8-1.3); EST CRCL DRUG DOSING (CG) 26.36 mL/min; ESTIMATED GFR 26.0 mL/min (>60); GLUCOSE RANDOM 167.0 mg/dL (74-106); POTASSIUM,K 3.8 mmol/L (3.6-5.2); SODIUM,NA 134.0 mmol/L (140-148)
[2025-01-30 06:14] LABS: BLOOD UREA NITROGEN,BUN 84.0 mg/dL (7-18)
[2025-01-30] MEDS: Furosemide 40 MG/4 ML VIAL IVPUSH ONE (15:34)
[2025-01-31 05:41] LABS: INR 2.7
[2025-01-31 05:42] LABS: CARBON DIOXIDE,CO2 20.0 mmol/L (21-32); CHLORIDE,CL 103.0 mmol/L (100-108); CREATININE 2.2 mg/dL (0.8-1.3); EST CRCL DRUG DOSING (CG) 29.96 mL/min; ESTIMATED GFR 30.0 mL/min (>60); GLUCOSE RANDOM 128.0 mg/dL (74-106); POTASSIUM,K 3.6 mmol/L (3.6-5.2); SODIUM,NA 134.0 mmol/L (140-148)
[2025-01-31 05:46] LABS: BLOOD UREA NITROGEN,BUN 87.0 mg/dL (7-18)
[2025-01-31] MEDS: Furosemide 40 MG/4 ML VIAL IVPUSH ONE (11:55)
[2025-02-01 06:01] LABS: PLATELET COUNT,PLT 204 K/uL (130-375); RED BLOOD CELL COUNT 4.38 M/uL (4.14-5.76); WHITE BLOOD CELL COUNT,WBC 6.4 K/uL (3.2-11.0)
[2025-02-01 06:22] LABS: CARBON DIOXIDE,CO2 22.0 mmol/L (21-32); CHLORIDE,CL 102.0 mmol/L (100-108); CREATININE 2.1 mg/dL (0.8-1.3); EST CRCL DRUG DOSING (CG) 31.38 mL/min; ESTIMATED GFR 32.0 mL/min (>60); GLUCOSE RANDOM 127.0 mg/dL (74-106); POTASSIUM,K 3.8 mmol/L (3.6-5.2); SODIUM,NA 134.0 mmol/L (140-148)
[2025-02-01 06:23] LABS: INR 2.2
[2025-02-01 06:24] LABS: BLOOD UREA NITROGEN,BUN 81.0 mg/dL (7-18)
[2025-02-01 06:45] LABS: ATYPICAL LYMPHOCYTES FEW; LYMPHOCYTES ABSOLUTE MAN 1.15 K/uL (0.8-3.3); LYMPHOCYTES PERCENT MAN 18 % (24-44); METAMYELOCYTE ABSOLUTE MAN 0.13 K/uL; METAMYELOCYTE PERCENT MAN 2 %; MONOCYTES ABSOLUTE MAN 0.26 K/uL (0.20-0.90); MONOCYTES PERCENT MAN 4 % (2-6); NEUTROPHILS ABSOLUTE MAN 4.86 K/uL (1.0-7.6); SEG NEUTROPHILS PERCENT MAN 76 % (36-66)
[2025-02-01 09:18] LABS: APPEARANCE,URINE CLOUDY (CLEAR); GLUCOSE,URINE NEGATIVE (NEGATIVE); OCCULT BLOOD,URINE LARGE (NEGATIVE)
[2025-02-01 09:24] LABS: EPITHELIAL CELLS,URINE NOT SEEN
[2025-02-01] MEDS: Furosemide 40 MG/4 ML VIAL IVPUSH ONE (15:22)
[2025-02-02 05:54] LABS: INR 2.8
[2025-02-02 06:01] LABS: A/G RATIO 0.4 (1.2-2.2); ALANINE AMINOTRANSFERASE,ALT 65 U/L (12-78); ASPARTATE AMNIOTRANSFERASE,AST 56 U/L (15-37); BILIRUBIN TOTAL 0.5 mg/dL (0.2-1.0); CARBON DIOXIDE,CO2 19 mmol/L (21-32); CHLORIDE,CL 102 mmol/L (100-108); CREATININE 2.1 mg/dL (0.8-1.3); EST CRCL DRUG DOSING (CG) 31.38 mL/min; ESTIMATED GFR 32 mL/min (>60); GLUCOSE RANDOM 126 mg/dL (74-106); POTASSIUM,K 3.7 mmol/L (3.6-5.2); PROTEIN TOTAL,TP 6.5 g/dL (6.4-8.2); SODIUM,NA 133 mmol/L (140-148); TSH ULTRASENSITIVE 9.907 uIU/mL (0.358-3.740)
[2025-02-02 06:03] LABS: BLOOD UREA NITROGEN,BUN 80 mg/dL (7-18)
[2025-02-03 06:26] LABS: CARBON DIOXIDE,CO2 19.0 mmol/L (21-32); CHLORIDE,CL 105.0 mmol/L (100-108); CREATININE 1.9 mg/dL (0.8-1.3); EST CRCL DRUG DOSING (CG) 34.69 mL/min; ESTIMATED GFR 36.0 mL/min (>60); GLUCOSE RANDOM 133.0 mg/dL (74-106); POTASSIUM,K 3.8 mmol/L (3.6-5.2); SODIUM,NA 135.0 mmol/L (140-148)
[2025-02-03 06:27] LABS: BLOOD UREA NITROGEN,BUN 82.0 mg/dL (7-18); INR 1.5
[2025-02-03 08:48] VITALS: BP 119/66
[2025-02-03 12:44] VITALS: PULSE 89
== END 2025-02-03 14:01 | DRG 565 ==
LOC: JP.ED 17:29 → JP.MS 19:56
PROVIDERS: ADMIT Internal Medicine; ATTEND Internal Medicine
DX: T79.6XXA Traumatic ischemia of muscle, initial encounter (principal); M62.82 Rhabdomyolysis; R79.1 Abnormal coagulation profile; A77.49 Other ehrlichiosis; N17.9 Acute kidney failure, unspecified; N39.0 Urinary tract infection, site not specified; E87.20 Acidosis, unspecified; Z66 Do not resuscitate; I48.91 Unspecified atrial fibrillation; K40.20 Bilateral inguinal hernia, without obstruction or gangrene, not specified as recurrent; E86.0 Dehydration; E87.6 Hypokalemia; G40.909 Epilepsy, unspecified, not intractable, without status epilepticus; H54.7 Unspecified visual loss; N40.0 Benign prostatic hyperplasia without lower urinary tract symptoms; N42.9 Disorder of prostate, unspecified; Z98.890 Other specified postprocedural states; Z86.718 Personal history of other venous thrombosis and embolism; Z79.899 Other long term (current) drug therapy; Z79.01 Long term (current) use of anticoagulants; W18.30XA Fall on same level, unspecified, initial encounter; Y92.009 Unspecified place in unspecified non-institutional (private) residence as the place of occurrence of the external cause
CPT/HCPCS: 36415; 36600; 51702; 70450; 71250; 72125; 74176; 76377; 80053; 80305; 81001; 82550; 82803; 83605; 83735; 85025; 85610; 86140; 86617 ×2; 86618 ×2; 87040 ×2; 87077; 87086; 87088; 87186 ×2; 87468; 87469; 87484; 87798 ×3; 96360; 99285 ×2; J7030; 51701; 51798; 71046; 71046-26; 80048; 80202; 84443; 93005; 97110-GP; 97116-GP; 97162-GP; 97165-GO; 97530-GP; A9270-GY; C1758; J0692; J0696; J1938; J1953; J2470; J3370; J3373; J3430; J3490; J7050